=== PATIENT | female | born 1965 | race Asian ===

== ENCOUNTER 2016-08-01 15:25 | Emergency (ER) | payer BC ==
[2016-08-01 16:39] VITALS: BP 141/84
--- NOTE | 2016-08-01 16:52 | UC ---
Jacinto Keenan Claudia, scribed for Slim Lozano MD on 08/01/16 at 1624 . Abdominal Pain Female HPI - HPI Summary HPI Summary: 51 year old female presents to the [facility] with suprapubic abd discomfort and back pain. Pt notes it is a discomfort pain of 1-2/10 and is intermittent. Pt notes that she has been having this pain for 3 weeks and visited her OBGYN. OBGYN notes an uterine fibroid and recommended an US. Pt has an US appt for 08/23/16 and is unable to get a sooner appt. She notes that the discomfort has been getting worse and it as been concerning her so she called the OBGYN today whom recommended coming into [facility] for US today. - History of Current Complaint Chief Complaint: UCAbdominalPain Stated Complaint: ABD PAIN Time Seen by Provider: 08/01/16 16:10 Hx Obtained From: Patient Hx Last Menstrual Period: 07/22/16 Onset/Duration: Gradual Onset, Lasting Weeks - 3, Still Present Pain Scale Used: 0-10 Numeric - 1-2/10 Location: Suprapubic Radiates: Yes Radiates to: Back Character: Other - discomfort Aggravating Factor(s): Nothing Alleviating Factor(s): Nothing Allergies/Adverse Reactions: Allergies Allergy/AdvReac Type Severity Reaction Status Date / Time Amoxicillin Allergy Severe Rash Verified 08/01/16 16:04 Home Medications: Home Medications Brexpiprazole [Rexulti] 1 mg PO DAILY 08/01/16 [History Confirmed 08/01/16] PMH/Surg Hx/FS Hx/Imm Hx Previously Healthy: Yes Cardiovascular History Of: Reports: Hypertension - Surgical History Surgical History: Yes Surgery Procedure, Year, and Place: - Family History Known Family History: Positive: Hypertension, Other - CA lung, and liver - Social History Occupation: Employed Full-time Lives: With Family Alcohol Use: Occasionally Substance Use Type: None Smoking Status (MU): Never Smoked Tobacco Review of Systems Constitutional: Other - NO FEVER Skin: Negative Eyes: Negative ENT: Negative Respiratory: Negative Cardiovascular: Negative Gastrointestinal: Abdominal Pain Genitourinary: Negative Motor: Negative Neurovascular: Negative Musculoskeletal: Negative Neurological: Negative Psychological: Negative All Other Systems Reviewed And Are Negative: Yes Physical Exam Triage Information Reviewed: Yes Vital Signs: Initial Vital Signs Temp 98.8 F 08/01/16 15:58 Pulse 78 08/01/16 15:58 Resp 14 08/01/16 15:58 BP 167/93 08/01/16 15:58 Pulse Ox 98 08/01/16 15:58 - Additional Comments Vital signs: Reviewed Gen.: Patient is a well developed and nourished female in no acute distress. Patient is sitting comfortably on the stretcher. Head: Normacephalic and atraumatic Eyes: PERRLA, EOMI x2. Ears: Right ear canal and TM WNL and Left ear canal and TM WNL Nose and mouth:WNL Neck: Supple, Positive bilateral submandibular and anterior cervical lymphadenopathy. No JVD Lungs: CTA B/L CVS: S1 & S2 present. No murmurs appreciated. ABDOMEN: Soft NT w/ positive BS. EXT: FROM x 4 NEURO: A+O X 3. Abd Pain Female Course/Dx - Course Course Of Treatment: 51 year old female presents to the [facility] with suprapubic abd discomfort and back pain. Pt notes it is a discomfort pain of 1-2/10 and is intermittent. Pt notes that she has been having this pain for 3 weeks and visited her OBGYN. OBGYN notes an uterine fibroid and recommended an US. Pt has an US appt for 08/23/16 and is unable to get a sooner appt. She notes that the discomfort has been getting worse and it as been concerning her so she called the OBGYN today whom recommended coming into [facility] for US today. The pt continues to have abd discomfort, and I believe the pt needs pelvic US and recommended by OBGYN. Since we do not have an US at [facility] I discussed transfere to [facility] with provider whom accepts for transfer. Pt is hemodynamically stable for transfer. - Differential Dx/Diagnosis Differential Diagnosis: Constipation, Diverticulitis, Ovarian Cyst, Urinary Tract Infection, Other - Uterine fibroids Provider Diagnoses: pelvic pain Discharge - Discharge Plan Condition: Stable Disposition: AGAINST MEDICAL ADVICE Discharge Disposition Comment: Transfer to [facility] via Car Referrals: Chrissy Davis MD [Primary Care Provider] - The documentation as recorded by the Jacinto carpenter Claudia accurately reflects the service I personally performed and the decisions made by me, Slim Lozano MD.
== END 2016-08-01 16:35 | disposition left against medical advice (07) ==
LOC: UCEAST 15:25
DX: R10.2 Pelvic and perineal pain (principal); D25.9 Leiomyoma of uterus, unspecified; Z88.1 Allergy status to other antibiotic agents
CPT/HCPCS: 99212; G0463

== ENCOUNTER 2016-08-01 17:02 | Emergency (ER) | payer BC ==
--- NOTE | 2016-08-01 19:01 | ED ---
Abdominal Pain/Female - HPI Summary HPI Summary: 51F presents with pelvic pain for a day. She states that she has been following up with her obgyn for a potential fibroid but they were unable to get her an u/s till august so they sent here to for one. She states that she has been bleeding off and on for a month. She denies any vaginal discharge or history of STDs. She denies any n/v/d. She denies any dysuria. She states that the pain she gets is cramp like and is relieved with ibuprofen. She is not currently bleeding. - History of Current Complaint Chief Complaint: Albinodionne Stated Complaint: UCEAST-PELVIC,BACK PAIN Time Seen by Provider: 08/01/16 18:48 Hx Last Menstrual Period: 07/22/16 Pain Intensity: 1 Allergies/Adverse Reactions: Allergies Allergy/AdvReac Type Severity Reaction Status Date / Time Amoxicillin Allergy Severe Rash Verified 08/01/16 16:04 PMH/Surg Hx/FS Hx/Imm Hx Endocrine/Hematology History: Denies: Hx Anticoagulant Therapy Cardiovascular History: Reports: Hx Hypertension - Surgical History Surgery Procedure, Year, and Place: Infectious Disease History: No Infectious Disease History: Denies: Traveled Outside the [place] in Last 30 Days - Family History Known Family History: Positive: Hypertension, Other - CA lung, and liver - Social History Alcohol Use: Occasionally Substance Use Type: Reports: None Smoking Status (MU): Never Smoked Tobacco Review of Systems Negative: Fever Negative: Chest Pain Negative: Shortness Of Breath Positive: Abdominal Pain - pelvic pain. Negative: Vomiting, Diarrhea, Nausea All Other Systems Reviewed And Are Negative: Yes Physical Exam Triage Information Reviewed: Yes Vital Signs On Initial Exam: Initial Vitals Temp Pulse Resp BP Pulse Ox 97.8 F 80 16 136/76 100 08/01/16 17:04 08/01/16 17:04 08/01/16 17:04 08/01/16 17:04 08/01/16 17:04 Vital Signs Reviewed: Yes Appearance: Positive: Well-Appearing Skin: Positive: Warm, Dry Head/Face: Positive: Normal Head/Face Inspection Eyes: Positive: Normal, Conjunctiva Clear Respiratory/Lung Sounds: Positive: Clear to Auscultation, Breath Sounds Present Cardiovascular: Positive: Normal, RRR Abdomen Description: Positive: Nontender, Soft Bowel Sounds: Positive: Present Diagnostics - Vital Signs Vital Signs Temp Pulse Resp BP Pulse Ox 08/01/16 17:04 97.8 F 80 16 136/76 100 - Laboratory Result Diagrams: 08/01/16 19:55 08/01/16 19:55 Lab Statement: Any lab studies that have been ordered have been reviewed, and results considered in the medical decision making process. - Ultrasound No standard instances Ultrasound Interpretation: Positive (See Comments) - IMPRESSION: Fibroid in the uterus. No adnexal masses are noted. Ultrasound Interpretation Completed By: Radiologist Abdominal Pain Fem Course/Dx - Course Course Of Treatment: 51F presents for u/s for possible fibroid. has had cramp like pelvic pain and intermittent bleeding. denies any chance of STDs. on exam abdomen nontender. u/s shows fibriod, labs normal. told to follow up with obgyn for management of fibriod. patient understands and agrees with plan - Diagnoses Differential Diagnosis: Positive: Ovarian Cyst, Urinary Tract Infection, Other - fibroid Provider Diagnoses: Fibroid Discharge - Discharge Plan Condition: Good Disposition: HOME Patient Education Materials: Uterine Fibroids (ED) Referrals: Chrissy Davis MD [Primary Care Provider] - Additional Instructions: Follow up with obgyn Take Tylenol or ibuprofen for pain every 6 hours Return to ED if develop any new or worsening symptoms
[2016-08-01 19:05] LABS: Urine Bacteria Absent (Absent); Urine Bilirubin Negative (Negative); Urine Glucose Negative (Negative); Urine Nitrite Negative (Negative)
--- NOTE | 2016-08-01 19:56 | RAD ---
Indication: Pelvic pain. Real-time sonography of the pelvis was performed utilizing endovaginal technique. The uterus measures 7.7 x 5.2 x 6.2 cm. Posterior fibroid towards the left is noted measuring 9 x 12 x 8 mm. Endometrial echoes measure 5.4 mm. Right ovary measures 3.1 x 1.8 x 1.6 cm. Left ovary measures 3.5 x 1.7 x 1.8 cm. No adnexal masses are noted. IMPRESSION: Fibroid in the uterus. No adnexal masses are noted.
[2016-08-01 20:04] LABS: Hematocrit 39 % (35-47); Hemoglobin 13.2 g/dl (12.0-16.0); Mean Corpuscular HGB Conc 34 g/dl (31-36); Mean Corpuscular Hemoglobin 31 pg (27-31); Mean Corpuscular Volume 93 fL (80-97); Mean Platelet Volume 7 um3 (7.4-10.4); Red Blood Count 4.22 10^6/ul (4.0-5.4); Red Cell Distribution Width 13 % (10.5-15); White Blood Count 5.9 10^3/ul (3.5-10.8)
[2016-08-01 20:09] VITALS: BP 154/75
[2016-08-01 20:18] LABS: Albumin 4.4 g/dL (3.2-5.2); BUN/Creatinine Ratio 25.8 (8-20); Calcium 9.2 mg/dL (8.6-10.3); EGFR African American 121.4 (>60); EGFR Non-African American 94.4 (>60); Potassium 3.5 mmol/L (3.5-5.0); Total Bilirubin 0.7 mg/dL (0.2-1.0); Total Protein 7.4 g/dL (6.4-8.9)
== END 2016-08-01 20:08 | disposition home or self-care (01) ==
LOC: ED 17:02
DX: D25.9 Leiomyoma of uterus, unspecified (principal); R10.2 Pelvic and perineal pain
CPT/HCPCS: 36415; 76830; 80053; 81003; 81015; 85025; 87086; 99282

== ENCOUNTER 2017-05-28 09:51 | Emergency (ER) | payer BC ==
[2017-05-28 10:07] VITALS: BP 128/75
[2017-05-28] MEDS ORDERED: Ketorolac INJ* 60 MG/2 ML VIAL IM ONE (10:43)
--- NOTE | 2017-05-28 11:30 | UC ---
Ruy Keenan Angela, scribed for Simi Singh, DO on 05/28/17 at 1027 . Upper Extremity HPI - HPI Summary HPI Summary: This pt is a 51 y/o female presenting to [facility] c/o left sided neck pain s/p exercise 1 week ago. Pt reports she was in the gym doing a new exercise 1 week ago where she had to lay on her right side and lift weights. She denies feeling any injuries during this exercise. Pt notes that the next day after this exercise she couldn't turn her neck secondary to pain. She states that now her pain is on the left side of her ear at rest. With movement, she reports her pain is on the left side of her neck and left shoulder. She notes she can't move her head to the left or right secondary to pain. Pt describes her pain as sharp and burning. Pt has taken advil and has been massaging her neck with no improvement. She took Tylenol last this morning with no relief. She notes she has some nausea. Denies fever, chills, vomiting, abd pain, chest pain, SOB, dizziness. Pt took Norvasc, Lexapro, and Rexulti this morning. PMHx: vertigo, HTN, depression, . Pt has intermittent vertigo, and takes Meclizine for this, unchanged since neck pain. - History of Current Complaint Chief Complaint: UCUpperExtremity Stated Complaint: NECK AND SHOULDER STIFFNESS Time Seen by Provider: 05/28/17 10:11 Hx Obtained From: Patient Hx Last Menstrual Period: 05/15/2017 Onset/Duration: Lasting Days, Still Present Severity Initially: Moderate Severity Currently: Severe Pain Intensity: 7 - with movement Pain Scale Used: 0-10 Numeric Location Of Pain: Is Discrete @ - left side of neck Character: Sharp, Burning Aggravating Factor(s): Movement Alleviating Factor(s): Rest Associated Signs And Symptoms: Positive: Negative Related History: Other: - s/p new exercise at the gym - Allergies/Home Medications Allergies/Adverse Reactions: Allergies Allergy/AdvReac Type Severity Reaction Status Date / Time Amoxicillin Allergy Severe Rash Verified 05/28/17 10:08 Home Medications: Home Medications Multiple Vitamin [Multivitamins] 1 cap PO DAILY 05/28/17 [History Confirmed ] PMH/Surg Hx/FS Hx/Imm Hx Other Endocrine History: DENIES: diabetes Cardiovascular History: Hypertension Psychological History: Depression Other History Of: Negative For: Anticoagulant Therapy - Surgical History Surgical History: Yes Surgery Procedure, Year, and Place: - Family History Known Family History: Positive: Hypertension, Diabetes, Other - depression, CA lung, and liver - Social History Alcohol Use: Rare Substance Use Type: None Smoking Status (MU): Never Smoked Tobacco Review of Systems Constitutional: Negative Skin: Negative Eyes: Negative ENT: Negative Respiratory: Negative Cardiovascular: Negative Gastrointestinal: Nausea, Other - DENIES vomiting Genitourinary: Negative Motor: Decreased ROM - of neck secondary to pain Neurovascular: Negative Musculoskeletal: Other: - Left sided neck pain, left shoulder pain Neurological: Negative Psychological: Negative All Other Systems Reviewed And Are Negative: Yes Physical Exam Triage Information Reviewed: Yes Appearance: Well-Appearing, No Pain Distress, Well-Nourished Vital Signs: Initial Vital Signs Temp 98.3 F 05/28/17 10:02 Pulse 79 05/28/17 10:02 Resp 18 05/28/17 10:02 BP 128/75 05/28/17 10:02 Pulse Ox 98 05/28/17 10:02 Vital Signs Reviewed: Yes Eyes: Positive: Conjunctiva Clear. Negative: Discharge ENT: Positive: Hearing grossly normal, TMs normal. Negative: Muffled voice, Hoarse voice Neck exam: Normal Neck: Positive: Supple Respiratory: Positive: Lungs clear, Normal breath sounds, No respiratory distress, No accessory muscle use Cardiovascular: Positive: RRR, No Murmur Musculoskeletal: Positive: Other: - Kyphosis. Paraspinal spasm on the left. Trapezius spasm on the left. Levator scapula spasms on the left. No tenderness on the tendons of the rotator cuff. Strength and sensation intact bilaterally. No bony tenderness. ROM intact. Neurological: Positive: Alert, Muscle Tone Normal, Other: - Strength and sensation intact bilaterally Psychological Exam: Normal Psychological: Positive: Age Appropriate Behavior Skin Exam: Normal Skin: Positive: Other - warm, dry, normal color Upper Extremity Course/Dx - Course Course Of Treatment: In the [facility] course the patient was given a Toradol injection. Medications reviewed. Allergies reviewed. Elevated blood pressure noted likely due to pts condition. - Differential Dx/Diagnosis Provider Diagnoses: cervical strain Discharge - Discharge Plan Condition: Stable Disposition: HOME Patient Education Materials: Cervical Strain (ED) Referrals: Chrissy Davis MD [Primary Care Provider] - 6 Days (if not improving) Additional Instructions: MUSCLE RELAXERS: Muscle relaxing medications are usually prescribed for acute muscle spasm or injury to the neck and back. They are often combined with antiinflammatory pain medication for increased relief. You may stop the muscle relaxer when the pain and stiffness have improved. Start the medication again if spasms recur. Muscle relaxers may cause drowsiness, especially with the first dose. Do not operate machinery or drive while under the effects of the medication. Most muscle relaxers last up to 24 hours. Do not combine the medication with alcohol. ANTI-INFLAMMATORY MEDICATION: You have received a prescription for an antiinflammatory agent. This is an excellent, safe drug for pain control. In addition, it has potent antiinflammatory effects which are beneficial, especially in the treatment of injuries, arthritis, or tendonitis. It's best to take this medicine with food. Persons with ulcer disease or allergy to aspirin should notify their physician of this before taking this drug. Take the medication exactly as prescribed. Don't take additional doses unless instructed to do so by your doctor. If you develop wheezing, shortness of breath, hives, faintness, stomach pain, vomiting, or dark black stools, return for re-evaluation at once. WE HAVE GIVEN YOU A REFERAL TO PHYSICAL THERAPY YOU WOULD LIKELY BENEFIT FROM OSTEOPATHIC MANIPULATION. WE RECOMMEND THAT YOU FIND AN OSTEOPATHIC PHYSICIAN IN YOUR AREA WHO DOES LYMPHATIC, MYOFACIAL AND VISCERAL WORK Another option for body work : [facility] and [facility] [phone] The documentation as recorded by the Ruy carpenter Angela accurately reflects the service I personally performed and the decisions made by , Simi Singh DO.
== END 2017-05-28 11:24 | disposition home or self-care (01) ==
LOC: UCEAST 09:51
DX: S16.1XXA Strain of muscle, fascia and tendon at neck level, initial encounter (principal); X50.3XXA Overexertion from repetitive movements, initial encounter; Y93.B3 Activity, free weights; Z88.1 Allergy status to other antibiotic agents; Y92.39 Other specified sports and athletic area as the place of occurrence of the external cause; R42 Dizziness and giddiness; I10 Essential (primary) hypertension; F32.9 Major depressive disorder, single episode, unspecified
CPT/HCPCS: 99212; G0463; J1885

== ENCOUNTER 2018-01-22 16:50 | Inpatient (IN) | payer BC ==
--- NOTE | 2018-01-22 17:11 | ED ---
Psychiatric Complaint - HPI Summary HPI Summary: 52 y/o female presents to the ED c/o acute on chronic depression starting when the pt was 12, worsening in the last 2-3 months. Today the pt came home this afternoon and couldn't stop crying, called her therapist and was referred to the ED (therapist for over 15 years). Pt states she has occasional suicidal impulses like "franky the car". Associated sx: worsening tremor. Pt has "trouble controlling her emotions", per . Past medications reviewed on visit. Occasional EtOH use. Pt was hospitalized when the pt was 19. 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 - History Of Current Complaint Chief Complaint: EDMentalHealth Hx Obtained From: Patient, Family/Fretted Instrument Maker Hand - Hx Last Menstrual Period: 05/15/2017 Onset/Duration: Still Present Character: Depressed Alleviating Factor(s): Nothing Has Suicidal: Reports: Thoughts - "impulses" - Allergies/Home Medications Allergies/Adverse Reactions: Allergies Allergy/AdvReac Type Severity Reaction Status Date / Time amoxicillin Allergy Rash Verified 01/22/18 16:57 Home Medications: Home Medications Brexpiprazole (NF) [Rexulti (NF)] 2 mg PO DAILY 01/22/18 [History Confirmed 03/01] Calcium Carb/Vitamin D3/Vit K1 [Viactiv 500-500-40 mg-Unt-Mcg] 2 chw PO DAILY [History Confirmed 01/22/18] Escitalopram (NF) [Lexapro 20 mg (NF)] 30 mg PO DAILY 01/22/18 [History Confirmed 01/22/18] Ibuprofen TAB* [Motrin TAB* 600 MG] 600 mg PO Q6H PRN 01/22/18 [History Confirmed 01/22/18] Multivitamins/Minerals TAB* [Theragran/minerals TAB*] 1 tab PO DAILY 01/22/18 [ History Confirmed 01/22/18] amLODIPine TAB* [Norvasc 5 mg TAB*] 5 mg PO DAILY 01/22/18 [History Confirmed ] PMH/Surg Hx/FS Hx/Imm Hx Previously Healthy: No Endocrine/Hematology History: Denies: Hx Anticoagulant Therapy Cardiovascular History: Reports: Hx Hypertension - Surgical History Surgery Procedure, Year, and Place: Infectious Disease History: No Infectious Disease History: Denies: Traveled Outside the [place] in Last 30 Days - Family History Known Family History: Positive: Hypertension, Diabetes, Other - depression, CA lung, and liver - Social History Alcohol Use: Rare Hx Substance Use: No Substance Use Type: Reports: None Hx Tobacco Use: No Smoking Status (MU): Never Smoked Tobacco Review of Systems Negative: Fever, Chills Negative: Drainage Negative: Sore Throat Negative: Chest Pain Negative: Shortness Of Breath, Cough Negative: Abdominal Pain, Vomiting, Nausea Negative: dysuria, hematuria Negative: Myalgia, Edema Negative: Rash Neurological: Other - no dizziness Positive: Depressed, Other - "occasional suicidal impulses like franky her car " All Other Systems Reviewed And Are Negative: Yes Physical Exam - Summary Physical Exam Summary: Constitutional: Well-developed, Well-nourished, Alert. (-) Distressed Skin: Warm, Dry HENT: Normocephalic; Atraumatic Eyes: Conjunctiva normal Neck: Musculoskeletal ROM normal neck. (-) JVD, (-) Stridor, (-) Tracheal deviation Cardio: Rhythm regular, rate normal, Heart sounds normal; Intact distal pulses; The pedal pulses are 2+ and symmetric. Radial pulses are 2+ and symmetric. (-) Murmur Pulmonary/Chest wall: Effort normal. (-) Respiratory distress, (-) Wheezes, (-) Rales Abd: Soft, (-) epigastric tenderness, (-) Distension, (-) Guarding, (-) Rebound Musculoskeletal: (-) Edema Lymph: (-) Cervical adenopathy Neuro: Alert, Oriented x3. Pt has a resting tremor. Psych: Mood and affect Normal Triage Information Reviewed: Yes Vital Signs On Initial Exam: Initial Vitals Temp Pulse Resp BP Pulse Ox 98.8 F 89 16 165/88 99 01/22/18 16:53 01/22/18 16:53 01/22/18 16:53 01/22/18 16:53 01/22/18 16:53 Vital Signs Reviewed: Yes Diagnostics - Vital Signs Vital Signs Temp Pulse Resp BP Pulse Ox 01/22/18 16:53 98.8 F 89 16 165/88 99 - Laboratory Lab Statement: Any lab studies that have been ordered have been reviewed, and results considered in the medical decision making process. Course/Dx - Course Assessment/Plan: Pt clear for [facility]HE. Pt will be signed out to Dr. Mcclelland pending dispo and MHE. - Differential Dx/Clinical Impression Provider Diagnosis: Depression Discharge - Sign-Out/Discharge Documenting (check all that apply): Sign-Out Patient Signing out patient TO: Debra Mcclelland Receiving patient FROM: Jax De La Garza - Discharge Plan Referrals: Chrissy Davis MD [Primary Care Provider] - - Attestation Statements Document Initiated by Scribe: Yes Documenting Scribe: Cedrick Grady Provider For Whom Scribe is Documenting (Include Credential): Jax De La Garza MD Scribe Attestation: Cedrick Keenan, scribed for Jax De La Garza MD on 01/23/18 at 0019.
--- OUTSIDE RECORDS SUMMARY | 2018-01-22 17:56 | XMS REPORT ---
:1965 External Reference #:[id number] Author Organization [facility] Address [address] [place] [address] Phone [phone] Care Team Providers Name Role Phone Chrissy Davis M.D. 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 Primary Care Physician Unavailable Payers Type Date Identification Numbers Payment Provider Subscriber Commercial Effective: Policy Number: [id number] [place] [employer] Issa Charlene 2002 Group Number: [id number] [address] PayID: [id number] [place] [address] Problems Date Description Provider Status Onset: 03/18/2011 Essential hypertension Charlie José M.D. Active Onset: 07/28/2011 Peripheral vertigo Charlie José M.D. Active Onset: 07/28/2011 Impacted cerumen Charlie José M.D. Active Onset: 07/16/2012 Low back pain Charlie José M.D. Active Onset: 02/26/2014 Essential tremor Chrissy Davis M.D. Active Onset: 02/26/2014 Moderate recurrent major depression Chrissy Davis M.D. Active Onset: 02/26/2014 Excessive and frequent menstruation Chrissy Davis M.D. 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 Use Nonsmoker ETOH Use Rare Smoking Patient has never smoked Exercise Type/Frequency Exercises rarely Current Allergies, Adverse Reactions, Alerts Date Description Reaction Status Severity Comments 06/07/2002 Amoxicillin active Medications Medication Date Status Form Strength Qnty SIG Indications Ordering Provider Amlodipine 01/19 Active Tablets 5mg 30tab 1 by I10 Angeli Padron Besylate s mouth Josué, every day 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 Multi Vitamin 12/31 Active Tablets once Tana daily Juan Pablo, [employer] Meclizine HCL 12/29 Active Tablets 25mg 30tab take 1/2- H81.391 s 1 tablet Juan Pablo, three [employer] times a day if needed for dizziness Fish Oil 02/26 Active Capsules 1000mg 1 by Family /2013 mouth Medicine every day [facility] Lexapro Active 20mg 1 05/16 PO 296.32 Family / qd [facility] Rexulti Active Tablets 2mg qd Unknown / Cytomel Active Tablets Unknown /0000 Propranolol HCL 01/05 Hx Tablets 20mg 30tab take one I10 Angeli C. 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 /Trimethoprim 2017 Jerome De La Fuente MD 01/05 Physical Therapy 04/18 Hx evaluate H81.391 and treat Juan Pablo, - vertigo [employer] 06/28 d\\ crystal formation in right inner ear Norvasc 12/31 Hx Tablets 5mg 90tab Take 1 s Tablet By Juan Pablo, - Mouth [employer] 01/05 Daily Norvasc 06/04 Hx Tablets 5mg 30tab take one s tablet by Ryan, - mouth one M.DAden 12/31 time daily Ibuprofen 07/16 Hx Tablets 600mg 50tab 1 po tid 724.2 Guerra A. /2012 s tiff José M.D. - 10/12 Cyclobenzaprine 07/16 Hx Tablets 10mg 20tab take 1 724.2 Guerra A. HCL /2012 s tablet by Danielle José - mouth 10/12 evening if needed for muscle spasm Fluticasone 04/02 Hx Suspension 50mcg/Act 16uni spray 2 388.9 Guerra A. Propionate ts sprays Danielle José - into each 10/12 nostril once daily Amlodipine 04/02 Hx Tablets 5mg 30tab take one 401.9 Chrissy Besylate s tablet by Ryan, - mouth one Danielle 06/04 daily Amlodipine 09/08 Hx Tablets 10mg 30tab Take One Guerra A. Besylate s Tablet By Danielle José - Mouth One 04/02 Daily Medrol 08/22 Hx Tablets 4mg 1tabs dose-pack 386.10 Guerra A. as Danielle José - instructe 04/02 Fluticasone 08/22 Hx Suspension 50mcg/Act 1unit spray 2 386.10 Guerra A. Propionate s sprays Danielle José - into each 04/02 nostril once daily Transderm-Scop 08/08 Hx Patches 1.5mg 3unit apply one Guerra . 72HR s patch Danielle José - every 08/15 days prn Meclizine HCL 07/27 Hx Tablets 12.5mg 30tab one to 386.10 Guerra A. s two tab Danielle José - po every 08/04 12 Amlodipine 05/16 Hx Tablets 2.5mg 90tab Take One Guerra A. Besylate s Tablet By Danielle José - Mouth One 09/08 Daily Zithromax 05/07 Hx Tablets 250mg 6Tabs 2 po qd 466.0 Tana Juan Pablo armstrong, - then 1 po [employer]OL 10/12 qd 4 Norvasc 08/08 Hx Tabs 2.5mg 90tab Take One Guerra A. s Tablet By Danielle José - Mouth One 05/16 Daily Abilify 05/14 Hx Tablets 5mg 1/2 po qd [facility] [place] Fish Oil 06/11 Hx Capsules 3 po qd Guerra A. Danielle José - 08/22 Azithromycin 05/21 Hx Tablets 250mg 6tabs 2 po 466.0 Guerra A. today and Danielle José - 1 po x 4 Tessalon Perles 05/21 Hx Capsules 100mg 30cap one to 466.0 Guerra A. s two tabs Danielle José - po tid 06/11 prn cough Norvasc 03/24 Hx Tablets 2.5mg 30tab 1 PO qd Guerra A. s Danielle José - 01/01 Metoprolol 02/14 Hx Tablets ER 25mg 30tab one tab Guerra A. Succinate ER /2007 24HR s po daily Danielle José - 03/24 Metoprolol 01/24 Hx Tablets ER 50mg 30tab 1 po qd Guerra A. Succinate ER 24HR s Danielle José - 02/14 Zithromax 06/25 Hx Tablets 250mg 9tabs 2 po qd 465.9 Guerra A. for three Danielle José - days , then 1 po /2007 qd 3 Motrin 06/11 Hx Tablets 600mg 60tab 1 PO tid 716.99 Guerra A. s prn Danielle José - 06/21 Keflex 05/22 Hx Capsules 500mg 14cap 1 po bid Thai J. /2007 Jerome Nieves M.D. 06/11 Doxycycline 07/30 Hx 100mg 20uni 1 po bid Guerra A. ts Danielle José - 05/22 Keflex 06/07 Hx 500 20uni 1 bid X Kirstin ts 10 Days Jerome Nassar-Yari 06/17 Wellbutrin XL Hx Tablets 150mg 1 po qd Unknown - Abilify Hx Tablets 2mg 30tab 1 po qd Unknown /0000 s - 06/28 Cytomel Hx Tablets 50mcg 2 po qd Unknown - 02/25 Vitamin D Hx Capsules 1000Unit 90cap 1 po qd Unknown /0000 s - 08/22 Claritin D 0000 Hx otc Unknown /0000 - 08/22 Immunizations CPT Code Status Date Vaccine Lot # [id number] Given 02/20/2015 Influenza Vac, Quadrivalent, Slit Virus, Im [id number] 92433 Given 02/26/2014 DO Not Use Split Influenza Virus Vaccine [id number] 68027 Given 02/13/2013 DO Not Use Split Influenza Virus Vaccine [id number] 65663 Given 04/02/2012 DO Not Use Split Influenza Virus Vaccine [id number] 02349 Given 03/05/2011 DO Not Use Split Influenza Virus Vaccine [id number] 93739 Given 02/06/2010 DO Not Use Split Influenza Virus Vaccine [id number] 86821 Given 05/14/2009 H1N1 Nasal Virus Vaccine [id number] 44258 Given 05/14/2009 H1N1 Immunization Intramuscular/Intranasal W Counseling 70384 Given 04/18/2009 DO Not Use Split Influenza Virus Vaccine [id number] 68083 Given 03/05/2008 Tdap Tetanus, W Pertussis [id number] 75233 Given 03/05/2008 DO Not Use Split Influenza Virus Vaccine [id number] Vital Signs Date Vital Result Comment 01/19/2018 BP Systolic 124 mmHg BP Diastolic 80 mmHg Heart Rate 78 /min Body Temperature 97.7 F Height 63.5 inches 5'3.50" 01/05/2018 BP Systolic 132 mmHg BP Diastolic 82 mmHg Heart Rate 84 /min Body Temperature 97.5 F Height 63.5 inches 5'3.50" Weight 134.00 lb BMI (Body Mass Index) 23.4 kg/m2 10/23/2017 BP Systolic 126 mmHg BP Diastolic 80 mmHg Heart Rate 68 /min Body Temperature 97.3 F Respiratory Rate 16 /min Height 63.5 inches 5'3.50" Weight 134.00 lb BMI (Body Mass Index) 23.4 kg/m2 08/15/2017 BP Systolic 140 mmHg BP Diastolic 80 mmHg Heart Rate 90 /min Body Temperature 97.7 F Height 63.5 inches 5'3.50" Weight 133.00 lb BMI (Body Mass Index) 23.2 kg/m2 06/28/2017 BP Systolic 118 mmHg BP Diastolic 78 mmHg Heart Rate 74 /min Body Temperature 97.2 F Respiratory Rate 16 /min Height 63.5 inches 5'3.50" Weight 133.00 lb BMI (Body Mass Index) 23.2 kg/m2 04/18/2016 BP Systolic 122 mmHg BP Diastolic 68 mmHg Heart Rate 72 /min Body Temperature 97.4 F Respiratory Rate 16 /min Height 63.5 inches 5'3.50" Weight 131.00 lb BMI (Body Mass Index) 22.8 kg/m2 01/01/2016 BP Systolic 118 mmHg BP Diastolic 70 mmHg Heart Rate 68 /min Body Temperature 97.3 F Respiratory Rate 16 /min Height 63.5 inches 5'3.50" Weight 127.00 lb BMI (Body Mass Index) 22.1 kg/m2 12/29/2014 BP Systolic 108 mmHg BP Diastolic 64 mmHg Heart Rate 72 /min Body Temperature 97.5 F Respiratory Rate 16 /min Height 63.5 inches 5'3.50" Weight 137.00 lb BMI (Body Mass Index) 23.9 kg/m2 02/26/2014 BP Systolic 114 mmHg BP Diastolic 68 mmHg Heart Rate 72 /min Body Temperature 96.1 F Height 63.5 inches 5'3.50" Weight 133.50 lb BMI (Body Mass Index) 23.3 kg/m2 10/12/2012 BP Systolic 118 mmHg BP Diastolic 82 mmHg Heart Rate 78 /min Body Temperature 97.0 F Respiratory Rate 15 /min Height 63.5 inches 5'3.50" Weight 131.00 lb BMI (Body Mass Index) 22.8 kg/m2 07/16/2012 BP Systolic 120 mmHg BP Diastolic 82 mmHg Heart Rate 90 /min Body Temperature 97.2 F Height 63.5 inches 5'3.50" Weight 133.38 lb BMI (Body Mass Index) 23.3 kg/m2 04/23/2012 BP Systolic 110 mmHg BP Diastolic 70 mmHg Heart Rate 68 /min Body Temperature 97.3 F Height 63.5 inches 5'3.50" Weight 134.00 lb BMI (Body Mass Index) 23.4 kg/m2 04/02/2012 BP Systolic 90 mmHg BP Diastolic 60 mmHg Heart Rate 80 /min Body Temperature 97.2 F Height 63.5 inches 5'3.50" Weight 132.00 lb BMI (Body Mass Index) 23.0 kg/m2 08/23/2011 BP Systolic 120 mmHg BP Diastolic 82 mmHg Heart Rate 78 /min Body Temperature 96.7 F Height 63.5 inches 5'3.50" Weight 126.00 lb BMI (Body Mass Index) 22.0 kg/m2 08/16/2011 BP Systolic 150 mmHg BP Diastolic 100 mmHg Heart Rate 94 /min Body Temperature 97.9 F Height 63.5 inches 5'3.50" Weight 126.00 lb BMI (Body Mass Index) 22.0 kg/m2 08/05/2011 BP Systolic 120 mmHg lay BP Diastolic 80 mmHg lay BP Systolic Recheck 120 mmHg sit BP Diastolic Recheck 84 mmHg sit Heart Rate 72 /min stand 100/70 Body Temperature 98.3 F Respiratory Rate 18 /min Height 63.5 inches 5'3.50" Weight 127.00 lb BMI (Body Mass Index) 22.1 kg/m2 07/28/2011 BP Systolic 132 mmHg BP Diastolic 92 mmHg Heart Rate 84 /min Body Temperature 98.1 F Height 63.5 inches 5'3.50" Weight 127.00 lb BMI (Body Mass Index) 22.1 kg/m2 10/12/2010 BP Systolic 128 mmHg BP Diastolic 80 mmHg Heart Rate 80 /min Body Temperature 97.5 F Height 63.5 inches 5'3.50" Weight 126.00 lb BMI (Body Mass Index) 22.0 kg/m2 05/07/2010 BP Systolic 124 mmHg BP Diastolic 80 mmHg Heart Rate 78 /min Body Temperature 97.7 F Respiratory Rate 16 /min O2 % BldC Oximetry 99 % Height 63.5 inches 5'3.50" Weight 128.00 lb BMI (Body Mass Index) 22.3 kg/m2 01/01/2010 BP Systolic 130 mmHg BP Diastolic 80 mmHg Heart Rate 76 /min Body Temperature 98.7 F Respiratory Rate 20 /min Height 63.5 inches 5'3.50" Weight 126.00 lb BMI (Body Mass Index) 22.0 kg/m2 05/14/2009 BP Systolic 108 mmHg BP Diastolic 78 mmHg Heart Rate 80 /min Body Temperature 97.0 F Height 63.5 inches 5'3.50" Weight 133.00 lb BMI (Body Mass Index) 23.2 kg/m2 06/11/2008 BP Systolic 138 mmHg BP Diastolic 84 mmHg Heart Rate 84 /min Body Temperature 97.7 F Weight 128.00 lb 05/21/2008 BP Systolic 150 mmHg BP Diastolic 90 mmHg Heart Rate 88 /min Body Temperature 97.5 F Height 63.5 inches 5'3.50" Weight 126.00 lb BMI (Body Mass Index) 22.0 kg/m2 03/24/2008 BP Systolic 112 mmHg BP Diastolic 80 mmHg Heart Rate 72 /min Body Temperature 97.5 F Height 63.5 inches 5'3.50" Weight 126.00 lb BMI (Body Mass Index) 22.0 kg/m2 03/05/2008 BP Systolic 124 mmHg BP Diastolic 80 mmHg Heart Rate 84 /min Body Temperature 97.5 F Height 63.5 inches 5'3.50" Weight 127.00 lb BMI (Body Mass Index) 22.1 kg/m2 02/20/2008 BP Systolic 126 mmHg BP Diastolic 70 mmHg Body Temperature 98.6 F Height 63.5 inches 5'3.50" Weight 126.00 lb BMI (Body Mass Index) 22.0 kg/m2 01/30/2008 BP Systolic 120 mmHg BP Diastolic 74 mmHg Heart Rate 68 /min Body Temperature 98.8 F Height 63.5 inches 5'3.50" Weight 126.00 lb BMI (Body Mass Index) 22.0 kg/m2 07/13/2007 BP Systolic 126 mmHg BP Diastolic 84 mmHg Heart Rate 78 /min Body Temperature 98.5 F Height 63.5 inches 5'3.50" Weight 124.00 lb BMI (Body Mass Index) 21.6 kg/m2 06/25/2007 BP Systolic 128 mmHg BP Diastolic 70 mmHg Heart Rate 96 /min Body Temperature 99.7 F Respiratory Rate 12 /min Height 63.5 inches 5'3.50" Weight 123.00 lb BMI (Body Mass Index) 21.4 kg/m2 06/18/2007 BP Systolic 148 mmHg BP Diastolic 98 mmHg Heart Rate 64 /min Body Temperature 97.7 F Respiratory Rate 12 /min Height 63.5 inches 5'3.50" Weight 124.00 lb BMI (Body Mass Index) 21.6 kg/m2 06/11/2007 BP Systolic 180 mmHg BP Diastolic 110 mmHg Heart Rate 100 /min Body Temperature 98.3 F Respiratory Rate 20 /min Height 63.5 inches 5'3.50" Weight 121.00 lb BMI (Body Mass Index) 21.1 kg/m2 05/22/2007 BP Systolic 150 mmHg BP Diastolic 88 mmHg Heart Rate 76 /min Body Temperature 98.2 F Height 63.5 inches 5'3.50" Weight 124.00 lb BMI (Body Mass Index) 21.6 kg/m2 03/22/2007 BP Systolic 120 mmHg BP Diastolic 80 mmHg Body Temperature 98.1 F Height 63.5 inches 5'3.50" Weight 124.00 lb BMI (Body Mass Index) 21.6 kg/m2 08/17/2006 BP Systolic 134 mmHg BP Diastolic 94 mmHg Heart Rate 84 /min Body Temperature 98.2 F Height 63.5 inches 5'3.50" Weight 128.00 lb BMI (Body Mass Index) 22.3 kg/m2 06/06/2006 BP Systolic 142 mmHg BP Diastolic 88 mmHg Heart Rate 80 /min Body Temperature 98.6 F Weight 136.00 lb 07/30/2002 BP Systolic 110 mmHg BP Diastolic 60 mmHg Body Temperature 98.4 F Weight 129.00 lb 06/07/2002 BP Systolic 120 mmHg BP Diastolic 72 mmHg Body Temperature 97.3 F Weight 129.00 lb Results Test Date Test Result H/L Range Note Ua - Micro (Fma) 10/23/2017 Appearance clear Color yellow Glucose, Urine (Fma/CMC/CTX) neg Bilirubin neg Ketones neg SP Grav 1.015 Blood neg PH 6.5 Protein neg Urobil 0.2 Nitrite neg Leukocytes (Fma/CMC/Centrex) trace Hyaline - /Lpf Granular - /Lpf WBC (a,Centrex) 1-2 RBC - Mucus - /Lpf Epith occass /Lpf Bacteria trace /Hpf Amorphous - /Lpf Crystals, Fluid (Fma/CMC/CTX) - Z#Comments - Urine Culture And 10/23/2017 Urine Culture SEE RESULT 1 Sensitivities BELOW Laboratory test finding 08/01/2016 Urine Culture And SEE RESULT 2 Sensitivities BELOW CBC Auto Diff 08/01/2016 White Blood Count 5.9 10^3/uL 3.5-10.8 Red Blood Count 4.22 10^6/uL 4.0-5.4 Hemoglobin 13.2 g/dL 12.0-16.0 Hematocrit 39 % 35-47 Mean Corpuscular Volume 93 fL 80-97 Mean Corpuscular Hemoglobin 31 pg 27-31 Mean Corpuscular HGB Conc 34 g/dL 31-36 Red Cell Distribution Width 13 % 10.5-15 Platelet Count 203 10^3/uL 150-450 Mean Platelet Volume 7 um3 Low 7.4-10.4 Abs Neutrophils 3.6 10^3/uL 1.5-7.7 Abs Lymphocytes 1.6 10^3/uL 1.0-4.8 Abs Monocytes 0.3 10^3/uL 0-0.8 Abs Eosinophils 0.2 10^3/uL 0-0.6 Abs Basophils 0.1 10^3/uL 0-0.2 Abs Nucleated RBC 0 10^3/uL Granulocyte % 62.2 % 38-83 Lymphocyte % 26.8 % 25-47 Monocyte % 5.7 % 1-9 Eosinophil % 4.1 % 0-6 Basophil % 1.2 % 0-2 Nucleated Red Blood Cells % 0 Urinalysis Profile 08/01/2016 Urine Color Yellow Urine Appearance Clear Urine Specific [place] 1.014 1.010-1.030 Urine pH 6.0 5-9 Urine Urobilinogen Negative Negative Urine Ketones Negative Negative Urine Protein Negative Negative Urine Leukocytes Trace Negative Urine Blood Negative Negative Urine Nitrite Negative Negative Urine Bilirubin Negative Negative Urine Glucose Negative Negative Urine White Blood Cell Trace(0-5/hpf) Absent Urine Red Blood Cell Absent Absent Urine Bacteria Absent Absent Urine Squamous Epithelial Cell Present Absent Comp Metabolic Panel 08/01/2016 Sodium 139 mmol/L 133-145 Potassium 3.5 mmol/L 3.5-5.0 Chloride 103 mmol/L 101-111 Co2 Carbon Dioxide 27 mmol/L 22-32 Anion Gap 9 mmol/L 2-11 Glucose 82 mg/dL 70-100 Blood Urea Nitrogen 17 mg/dL 6-24 Creatinine 0.66 mg/dL 0.51-0.95 BUN/Creatinine Ratio 25.8 High 8-20 Calcium 9.2 mg/dL 8.6-10.3 Total Protein 7.4 g/dL 6.4-8.9 Albumin 4.4 g/dL 3.2-5.2 Globulin 3.0 g/dL 2-4 Albumin/Globulin Ratio 1.5 1-3 Total Bilirubin 0.70 mg/dL 0.2-1.0 Alkaline Phosphatase 37 U/L 34-104 Alt 12 U/L 7-52 Ast 18 U/L 13-39 Egfr Non- 94.4 >60 Egfr 121.4 >60 3 Laboratory test finding 07/26/2016 Cytology SEE RESULT BELOW 4 Egfr (Calculated) 03/03/2014 Estimated GFR (CALCULATED) 5 Egfr >60 5, 6 Egfr, -[place] >60 5, 7 Laboratory test finding 03/03/2014 TSH (Thyrotropin) 1.780 uIU/ml 0.350- 5.500 5 CBC 03/03/2014 WBC 5.2 x10E3/uL 4.3-10.9 5 RBC 4.01 x10E6/uL 3.80-5.30 5 Hemoglobin 12.7 g/dL 11.8-15.8 5 Hematocrit 38.4 % 35.0-47.0 5 MCV 95.8 fl 82.0-98.0 5 MCH 31.7 pg 27.5-33.5 5 MCHC 33.1 g/dL 32.0-36.0 5 RDW 13.3 % 11.5-14.5 5 Platelet Count 249 x10E3/uL 130-400 5 MPV 9.6 fl 8.6-12.6 5 Segmented Neutrophils 68.9 % 44.0-74.0 5 Lymphocytes 22.4 % 15.0-45.0 5 Monocytes 6.9 % 2.0-13.0 5 Eosinophils 1.0 % 0.0-6.0 5 Basophils 0.8 % 0.0-2.0 5 Neutrophil Absolute 3.6 x10E3/uL 1.4-7.0 5 Lymphocytes Absolute 1.2 x10E3/uL 1.0-3.4 5 Monocyte Absolute 0.4 x10E3/uL 0.2-1.0 5 Eosinophil Absolute 0.1 x10E3/uL 0.0-0.5 5 Basophil Absolute 0.0 x10E3/uL 0.0-0.2 5 Lipid Panel 03/03/2014 Cholesterol, Total 167 mg/dL <200 5 Triglycerides 91 mg/dL <150 5 HDL Cholesterol 57 mg/dL 40-60 5 Chol/HDL Cholesterol 2.9 5, 8 LDL Cholesterol, Calc. 92 mg/dL 5, 9 LDL/HDL Cholesterol 1.6 5, 10 Comprehensive Metabolic 03/03/2014 Glucose 85 mg/dL 70-100 5 BUN 11 mg/dL 4-18 5 Creatinine, Serum 0.72 mg/dL 0.50-1.10 5 Sodium 142 mmol/L 136-146 5 Potassium 4.5 mmol/L 3.5-5.3 5 Chloride 107 mmol/L 98-110 5 Carbon Dioxide 30 mmol/L 20-32 5 Albumin 4.3 g/dL 3.5-4.7 5 Protein, Total 7.2 g/dL 6.4-8.3 5 Calcium 8.9 mg/dL 8.4-10.4 5 Alkaline Phosphatase 50 U/L 10-118 5 Sgot (Ast) 21 U/L 3-40 5 SGPT (Alt) 16 U/L 7-50 5 Bilirubin, Total 1.00 mg/dL 0.30-1.20 5 Throat-Beta Strept 04/10/2013 Throat Beta Strep Culture (SEE NOTE) 11 Ua - Non Micro (Fma) 10/12/2012 Appearance CLEAR Color YELLOW Glucose NEG Bilirubin ICTO:NEG Ketones 15 mg/dL SP Grav 1.020 Blood NEG PH 7.0 Protein NEG Urobil 1.0 Nitrite NEG Leukocytes (Fma/CMC/Centrex) NEG Laboratory test finding 10/12/2012 Thin Prep W/HPV(Lsil/MATT/Asc) SEE NOTE 12 Laboratory test finding 07/16/2012 Urine Culture No growth. Ua - Micro (Fma) 07/16/2012 Appearance clear Color yellow Glucose neg Bilirubin neg Ketones neg SP Grav 1.015 Blood neg PH 8.0 Protein neg Urobil 0.2 Nitrite neg Leukocytes (Fma/CMC/Centrex) small Hyaline - /Lpf Granular - /Lpf WBC (Fma,Centrex) 3-5 RBC 0-2 Mucus - /Lpf Epith occass /Lpf Bacteria trace /Hpf Amorphous - /Lpf Crystals, Fluid (Fma/CMC/CTX) - Z#Comments - Hepatic (Liver) Panel 11/30/2010 Albumin 4.2 g/dL 3.5-4.7 13 Protein, Total 7.1 g/dL 6.4-8.3 13 Alkaline Phosphatase 69 U/L 10-118 13 Sgot (Ast) 41 U/L High 3-40 13 SGPT (Alt) 47 U/L 7-50 13 Bilirubin, Total 0.90 mg/dL 0.30-1.20 13 Bilirubin, Direct 0.27 mg/dL 0.00-0.40 13 Bilirubin, Indirect 0.63 mg/dL 0.10-1.10 13 Laboratory test 11/30/2010 TSH (Thyrotropin) <0.019 uIU/ml Low 0.350- 5.500 13, 14 finding T-4 Free 0.4 ng/dL Low 0.8-1.8 13 Triiodothyronine,Free,Ser 13.1 pg/mL High 2.0-4.4 13 T-4 Total 3.7 g/dL Low 4.5-10.9 13 CBC 10/12/2010 WBC 4.7 x10E3/uL 4.3-10.9 15 RBC 4.11 x10E6/uL 3.80-5.30 15 Hemoglobin 11.9 g/dL 11.8-15.8 15 Hematocrit 37.5 % 35.0-47.0 15 MCV 91.2 fl 82.0-98.0 15 MCH 29.0 pg 27.5-33.5 15 MCHC 31.7 g/dL Low 32.0-36.0 15 RDW 13.3 % 11.5-14.5 15 Platelet Count 222 x10E3/uL 130-400 15 MPV 9.1 fl 6.5-10.5 15 Segmented Neutrophils 67.5 % 44.0-74.0 15 Lymphocytes 26.1 % 15.0-45.0 15 Monocytes 4.7 % 2.0-13.0 15 Eosinophils 1.3 % 0.0-6.0 15 Basophils 0.4 % 0.0-2.0 15 Neutrophil Absolute 3.2 x10E3/uL 1.4-7.0 15 Lymphocytes Absolute 1.2 x10E3/uL 1.0-3.4 15 Monocyte Absolute 0.2 x10E3/uL 0.2-1.0 15 Eosinophil Absolute 0.1 x10E3/uL 0.0-0.5 15 Basophil Absolute 0.0 x10E3/uL 0.0-0.2 15 Egfr (Calculated) 10/12/2010 Estimated GFR (CALCULATED) 15 Egfr >60 15, 16 Egfr, -[place] >60 15, 17 Comprehensive Metabolic 10/12/2010 Glucose 108 mg/dL High 70-100 15 BUN 14 mg/dL 4-18 15 Creatinine, Serum 0.55 mg/dL 0.50-1.10 15 Sodium 141 mmol/L 136-146 15 Potassium 4.4 mmol/L 3.5-5.3 15 Chloride 106 mmol/L 98-110 15 Carbon Dioxide 29 mmol/L 20-32 15 Albumin 4.1 g/dL 3.5-4.7 15 Protein, Total 6.9 g/dL 6.4-8.3 15 Calcium 9.0 mg/dL 8.4-10.4 15 Alkaline Phosphatase 68 U/L 10-118 15 Sgot (Ast) 49 U/L High 3-40 15 SGPT (Alt) 64 U/L High 7-50 15 Bilirubin, Total 0.70 mg/dL 0.30-1.20 15 Laboratory test finding 10/12/2010 C-Reactive Protein 1.1 mg/L 0.0-5.0 15, 18 Liver Function Panel 03/12/2010 Bilirubin Direct 0.2 mg/dL 0.1-0.5 Indirect Bilirubin 0.5 mg/dL 0.3-1.0 19 Laboratory test finding 03/12/2010 Magnesium 2.1 mg/dL 1.7-2.6 Amylase 90 U/L 30-125 Lipase 28 U/L 22-51 CPK (Creatine Kinase) 81 U/L 0-170 Laboratory test finding 03/12/2010 Troponin-I (TnI) 0.01 NG/ML 20 Urinalysis W/Microscopic 03/12/2010 Ua Color YELLOW Yellow Appearance-Urine CLEAR Clear Specific [place]-Ur 1.006 Low 1.010-1.030 Esterase-Urine TRACE Negative Nitrite NEGATIVE Negative [id number] NEGATIVE Negative Protein-Urine NEGATIVE Negative PH-Urine 7.0 5-9 Blood-Urine NEGATIVE Negative Ketones-Urine NEGATIVE Negative Bilirubin-Ur NEGATIVE Negative Glucose-Urine NEGATIVE Negative WBC-Urine 1-3 0-5 RBC-Urine 1-3 0-2 Epith Cells-Ur RARE None Bacteria-Urine TRACE None CBC With Electronic Diff 03/12/2010 White Blood Count 4.1 CUMM Low 4.8- 10.8 Red Cell Count 3.87 CUMM Low 4.2-5.4 Hemoglobin 12.5 g/dL 12.0-16.0 Hematocrit 36 % 35-47 Mean Corpuscular Volume 93 um3 79-97 Mean Corpuscular Hemoglob 32 pg High 27-31 Mean Corpuscular HGB Cone 35 g/dL 32-36 Redcell Distribution WDTH 12 % 10.5-15 Platelet Count 253 CUMM 150-450 Mean Platelet Volume 5.8 um3 Low 7.4-10.4 Gran % 64.6 % 38-83 Lymph % 25.4 % 25-47 Mononuclear % 8.5 % 1-9 Eosinophil % 1.1 % 0-6 Basophil % 0.4 % 0-2 Abs Lymphs 1.0 1.0-4.8 Abs Mononuclear 0.3 0-0.8 Absolute Neutrophil Count 2.6 1.5-7.7 Abs Eosinophils 0 0-0.6 Abs Basophils 0 0-0.2 Comp Metabolic Panel 03/12/2010 Sodium 140 mmol/L 135-145 Potassium 4.1 mmol/L 3.5-5.0 Chloride 107 mmol/L 101-111 Co2 (Carbon Dioxide) 28.0 mmol/L 22-32 Anion Gap 5.0 mmol/L 2-11 21 Glucose 99 mg/dL 70-100 22 BUN 14 mg/dL 6-24 Creatinine 0.51 mg/dL 0.50-1.40 One Over Creatinine 1.90 BUN/Creatinine Ratio 27.5 High 8-20 Calcium 9.1 mg/dL 8.1-9.9 Total Protein 7.1 GM/DL 6.2-8.1 Albumin 3.8 GM/DL 3.6-5.4 Globulin 3.3 GM/DL 2-4 Albumin/Globulin Ratio 1.2 1-3 Bilirubin Total 0.7 mg/dL 0.4-1.5 23 Alkaline Phosphatase 46 U/L 30-110 Alt (SGPT) 23 U/L 14-54 Ast (Sgot) 24 U/L 12-42 eGFR Non- 138.6 > 60 eGFR 167.7 > 60 24 Laboratory test finding 03/12/2010 Troponin-I (TnI) 0.01 NG/ML 25 Laboratory test finding 01/01/2010 Vitamin B-12 592 pg/mL 26, 27 Comprehensive Metabolic 01/01/2010 Glucose 85 mg/dL 70-100 26 BUN 15 mg/dL 4-18 26 Creatinine, Serum 0.79 mg/dL 0.50-1.10 26 Sodium 142 mmol/L 136-146 26 Potassium 4.1 mmol/L 3.5-5.3 26 Chloride 104 mmol/L 98-110 26 Carbon Dioxide 30 mmol/L 20-32 26 Albumin 4.4 g/dL 3.5-4.7 26 Protein, Total 7.0 g/dL 6.4-8.3 26 Calcium 9.1 mg/dL 8.4-10.4 26 Alkaline Phosphatase 45 U/L 10-118 26 Sgot (Ast) 22 U/L 3-40 26 SGPT (Alt) 17 U/L 7-50 26 Bilirubin, Total 0.80 mg/dL 0.30-1.20 26 Laboratory test finding 01/01/2010 Triiodothyronine,Free,Ser 2.0 pg/mL 2.0-4.4 26 T-4 Free 1.0 ng/dL 0.8-1.8 26 Iron 118 g/dL 30-158 26 TSH (Thyrotropin) 1.090 uIU/ml 0.350-5.500 26 Vitamin D, 25 Oh 35.1 ng/mL 32.0-100.0 26, 28 CBC 01/01/2010 WBC 4.9 x10E3/uL 4.3-10.9 26 RBC 3.86 x10E6/uL 3.80-5.30 26 Hemoglobin 12.2 g/dL 11.8-15.8 26 Hematocrit 36.8 % 35.0-47.0 26 MCV 95.3 fl 82.0-98.0 26 MCH 31.6 pg 27.5-33.5 26 MCHC 33.2 g/dL 32.0-36.0 26 RDW 12.7 % 11.5-14.5 26 Platelet Count 248 x10E3/uL 130-400 26 MPV 8.9 fl 6.5-10.5 26 Segmented Neutrophils 66.9 % 44.0-74.0 26 Lymphocytes 26.0 % 15.0-45.0 26 Monocytes 5.7 % 2.0-13.0 26 Eosinophils 0.8 % 0.0-6.0 26 Basophils 0.6 % 0.0-2.0 26 Neutrophil Absolute 3.3 x10E3/uL 1.4-7.0 26 Lymphocytes Absolute 1.3 x10E3/uL 1.0-3.4 26 Monocyte Absolute 0.3 x10E3/uL 0.2-1.0 26 Eosinophil Absolute 0.0 x10E3/uL 0.0-0.5 26 Basophil Absolute 0.0 x10E3/uL 0.0-0.2 26 GFR Calculated 01/01/2010 GFR (Calculated) >60 26, 29 Lipid Profile 03/17/2008 Cholesterol, Total 185 mg/dL 120-200 30, 31 HDL Cholesterol 58 mg/dL 40-60 30 LDL Cholesterol, Calc. 111 mg/dL <130 30, 32 Triglycerides 80 mg/dL 30, 33 LDL/HDL Cholesterol 1.9 30, 34 Chol/HDL Cholesterol 3.2 30, 35 Ua - Non Micro (Fma) 02/20/2008 Appearance CLEAR Color YELLOW Glucose NEG Bilirubin NEG Ketones NEG SP Grav 1.015 Blood NEG PH 7.0 Protein NEG Urobil 0.2 Nitrite NEG Leukocytes (Fma/CMC/Centrex) NEG Laboratory test 02/20/2008 Thin Prep SEE NOTE 36 finding W/HPV(Lsil/MATT/Asc) CBC With Electronic 01/25/2008 White Blood Count 4.0 CUMM Low 4.8-10.8 Diff Stat Red Cell Count 3.77 CUMM Low 4.2-5.4 Hemoglobin 12.1 g/dL 12.0-16.0 Hematocrit 35 % 35-47 Mean Corpuscular Volume 92 um3 79-97 Mean Corpuscular Hemoglob 32 pg High 27-31 Mean Corpuscular HGB Cone 35 g/dL 32-36 Redcell Distribution WDTH 13 % 10.5-15 Platelet Count 231 CUMM 150-450 Mean Platelet Volume 6.1 um3 Low 7.4-10.4 Gran % 72.2 % 38-83 Lymph % 20.5 % 20-45 Mononuclear % 6.4 % 1-9 Eosinophil % 0.4 % 0-6 Basophil % 0.5 % 0-2 Abs Lymphs 0.8 Low 1.0-4.8 Abs Mononuclear 0.3 0-0.8 Absolute Neutrophil Count 2.9 1.5-7.7 Abs Eosinophils 0 0-0.6 Abs Basophils 0 0-0.2 Basic Metabolic Panel Stat 01/25/2008 Sodium 136 mmol/L 135-145 Potassium 3.5 mmol/L 3.5-5.0 Chloride 105 mmol/L 101-111 Co2 (Carbon Dioxide) 29.0 mmol/L 22-32 Anion Gap 2.0 mmol/L 2-11 37 Glucose 135 mg/dL High 70-100 38 BUN 13 mg/dL 6-24 Creatinine 0.7 mg/dL 0.5-1.4 One Over Creatinine 1.42 BUN/Creatinine Ratio 18.6 8-20 Calcium 8.6 mg/dL 8.1-9.9 39 Laboratory test finding 01/25/2008 Troponin-I (TnI) 0.04 NG/ML 0-0.06 40 CBC W/Manual Diff 06/25/2007 Manual Differential PERFORMED 41 WBC 6.0 x103 4.3-10.9 41 RBC 3.74 x106 Low 3.80-5.30 41 Hemoglobin 11.6 g/dL Low 11.8-15.8 41 Hematocrit 35.0 % 35.0-47.0 41 MCV 93.6 fl 82.0-98.0 41 MCH 31.0 pg 27.5-33.5 41 MCHC 33.1 g/dL 32.0-36.0 41 RDW 14.1 % 11.5-14.5 41 Platelet Count 174 x103 130-400 41 MPV 9.2 fl 6.5-10.5 41 Feflex Diff+Morph For CBC4D 06/25/2007 Segmented Neutrophils 71.0 % 44.0- 74.0 41 Band 0.0 % 0.0-4.0 41 Lymphocytes 25.0 % 15.0-45.0 41 Monocytes 4.0 % 2.0-13.0 41 Eosinophils 0.0 % 0.0-6.0 41 Basophils 0.0 % 0.0-2.0 41 Neutrophil Absolute 4.3 x103 1.4-7.0 41 Lymphocytes Absolute 1.5 x103 1.0-3.4 41 Monocyte Absolute 0.2 x103 0.2-1.0 41 Eosinophil Absolute 0.0 x103 0.0-0.5 41 Basophil Absolute 0.0 x103 0.0-0.2 41 Feflex Diff+Morph For CBC4D 06/18/2007 Segmented Neutrophils 73.0 % 44.0- 74.0 42 Band 1.0 % 0.0-4.0 42 Lymphocytes 14.0 % Low 15.0-45.0 42 Atypical Lymphocyte 1.0 % 42 Monocytes 10.0 % 2.0-13.0 42 Eosinophils 1.0 % 0.0-6.0 42 Basophils 0.0 % 0.0-2.0 42 Neutrophil Absolute 2.8 x103 1.4-7.0 42 Lymphocytes Absolute 0.5 x103 Low 1.0-3.4 42 Monocyte Absolute 0.4 x103 0.2-1.0 42 Eosinophil Absolute 0.0 x103 0.0-0.5 42 Basophil Absolute 0.0 x103 0.0-0.2 42 CBC W/Manual Diff 06/18/2007 Manual Differential PERFORMED 42 WBC 3.8 x103 Low 4.3-10.9 42 RBC 3.78 x106 Low 3.80-5.30 42 Hemoglobin 11.5 g/dL Low 11.8-15.8 42 Hematocrit 35.5 % 35.0-47.0 42 MCV 93.9 fl 82.0-98.0 42 MCH 30.4 pg 27.5-33.5 42 MCHC 32.4 g/dL 32.0-36.0 42 RDW 13.7 % 11.5-14.5 42 Platelet Count 230 x103 130-400 42 MPV 9.5 fl 6.5-10.5 42 Laboratory test finding 06/11/2007 Antinuclear AB (Bernadette) NEGATIVE Negative 43, 44 Rheumatoid Factor (RF) <11.0 IU/mL 0.0-20.0 43 TSH (Thyrotropin) 1.640 uIU/ml 0.350-5.500 43 CK, Total 36 U/L 29-229 43 Sedimentation Rate 10 MM/HR 0-20 43 Comprehensive Metabolic 06/11/2007 Glucose 93 mg/dL 70-100 43 BUN 12 mg/dL 4-18 43 Creatinine, Serum 0.9 mg/dL 0.5-1.2 43 Sodium 141 mmol/L 136-146 43 Potassium 4.1 mmol/L 3.5-5.3 43 Chloride 106 mmol/L 98-110 43 Carbon Dioxide 29 mmol/L 20-32 43 Albumin 3.9 g/dL 3.5-4.7 43 Protein, Total 6.6 g/dL 6.4-8.2 43 Calcium 8.8 mg/dL 8.4-10.4 43 Alkaline Phosphatase 54 U/L 10-118 43 Sgot (Ast) 26 U/L 3-40 43 SGPT (Alt) 32 U/L 7-50 43 Bilirubin, Total 0.40 mg/dL 0.30-1.20 43 CBC 06/11/2007 WBC 2.9 x103 Low 4.3-10.9 43 RBC 3.75 x106 Low 3.80-5.30 43 Hemoglobin 11.3 g/dL Low 11.8-15.8 43 Hematocrit 35.3 % 35.0-47.0 43 MCV 94.1 fl 82.0-98.0 43 MCH 30.1 pg 27.5-33.5 43 MCHC 32.0 g/dL 32.0-36.0 43 RDW 13.4 % 11.5-14.5 43 Platelet Count 195 x103 130-400 43 MPV 10.3 fl 6.5-10.5 43 Segmented Neutrophils 67.5 % 44.0-74.0 43 Lymphocytes 20.4 % 15.0-45.0 43 Monocytes 9.3 % 2.0-13.0 43 Eosinophils 1.4 % 0.0-6.0 43 Basophils 1.4 % 0.0-2.0 43 Neutrophil Absolute 2.0 x103 1.4-7.0 43 Lymphocytes Absolute 0.6 x103 Low 1.0-3.4 43 Monocyte Absolute 0.3 x103 0.2-1.0 43 Eosinophil Absolute 0.0 x103 0.0-0.5 43 Basophil Absolute 0.0 x103 0.0-0.2 43 Laboratory test finding 06/11/2007 GFR (Calculated) >60 43, 45 Throat-Beta Strept 08/20/2006 Throat-Beta Strep Culture NGNBS 46 Ua - Micro (Fma) 08/17/2006 Appearance CLEAR Color LT YELLOW Glucose NEG Bilirubin NEG Ketones NEG SP Grav <=1.005 Blood NEG PH 7.0 Protein, Random Urine NEG Urobil 0.2 Nitrite NEG Leukocytes (Fma/CMC/Centrex) 1+ Hyaline - /Lpf Granular - /Lpf WBC (Fma,Centrex) 10-12 RBC, Fluid - Mucus SM AMT /Lpf Epith FEW /Lpf Bacteria TRACE /Hpf Amorphous - /Lpf Crystals, Urine (Fma/CMC/CTX) - /Lpf Misc NOT A CLEAN CATCH Comprehensive Metabolic 08/17/2006 Glucose 78 mg/dL 70-100 47 BUN 10 mg/dL 4-18 47 Creatinine, Serum 0.9 mg/dL 0.5-1.2 47 Sodium 139 mmol/L 136-146 47 Potassium 4.2 mmol/L 3.5-5.3 47 Chloride 105 mmol/L 98-110 47 Carbon Dioxide 27 mmol/L 20-32 47 Albumin 4.4 g/dL 3.5-4.7 47 Protein, Total 7.2 g/dL 6.4-8.2 47 Calcium 9.2 mg/dL 8.4-10.4 47 Alkaline Phosphatase 50 U/L 10-118 47 Sgot (Ast) 20 U/L 3-40 47 SGPT (Alt) 13 U/L 7-50 47 Bilirubin, Total 0.80 mg/dL 0.30-1.20 47 Lipid Profile 08/17/2006 Cholesterol, Total 169 mg/dL 120-200 47, 48 HDL Cholesterol 51 mg/dL 40-60 47 LDL Cholesterol, Calc. 105 mg/dL <130 47, 49 Triglycerides 63 mg/dL 47, 50 LDL/HDL Cholesterol 2.1 47, 51 Chol/HDL Cholesterol 3.3 47, 52 Laboratory test finding 08/17/2006 TSH (Thyrotropin) 1.220 uIU/ml 0.350- 5.500 47 GFR (Calculated) >60 47, 53 Laboratory test finding 08/17/2006 Thin Prep W/HPV SEE IMAGE (Lsil/MATT/Asc) Laboratory test finding 06/06/2006 Quickstrep NEGATIVE Negative Throat - Beta Strep Fma NEGATIVE @ 48HRS Laboratory test finding 06/07/2002 Quickstrep POSITIVE Negative 1 SEE RESULT BELOW Name: KRYSTAL RAMOS Faisal : [address]: Thai De La Fuente MD Acct: [id number] Unit: [id number] AGE: 52 Location: [facility] Re10/23/17 SEX: F Status: REG REF SPEC: [id number] SHERON: 10/23/17-[address]: Thai De La Fuente MD REQ: [id number] RECD: 06/ STATUS: COMP _ S[facility]: ORDERED: Urine Culture COMMENTS: [id number] CRUZ TOP Urine Source: Random Procedure Result Reported Site Urine Culture Final 10/26/17- 911 ML No Growth (<1,000 CFU/mL) * ML - Main Lab . END OF REPORT DEPARTMENT OF PATHOLOGY, [address] [place] [address] Uzair Harvey M.D. Director [facility] # [id number] 2 SEE RESULT BELOW Name: KRYSTAL RAMOS: [address]: Alexandra Payne MD Acct: [id number] Unit: [id number] AGE: 51 Location: ED Re08/01/16 SEX: F Status: DEP ER SPEC: [id number] SHERON: 08/01/[address]: Elsie MELVIN REQ: [id number] RECD: 08/01/16 STATUS: ANTONIO MALIK DR: Chrissy Payne MD _ SOURCE: URINE SPDESC: ORDERED: Urine Culture Procedure Result Reported Site Urine Culture Final 08/02/16- 1633 ML No Growth (<1,000 CFU/mL) * ML - MAIN LAB ([facility]) . END OF REPORT * ML=Testing performed at Main Lab DEPARTMENT OF PATHOLOGY, [address] [place] [address] Uzair Harvey M.D. Director [facility] # [id number] 3 Because ethnic data is not always readily available, this report includes an eGFR for both -Americans and non- Americans. The National Kidney Disease Education Program (NKDEP) does not endorse the use of the MDRD equation for patients that are not between the ages of 18 and 70, are , have extremes of body size, muscle mass, or nutritional status, or are non- or non-. According to the National Kidney Foundation, irrespective of diagnosis, the stage of the disease is based on the level of kidney function: Stage Description GFR(mL/min/1.73 m(2)) 1 Kidney damage with normal or decreased GFR 90 2 Kidney damage with mild decrease in GFR 60-89 3 Moderate decrease in GFR 30-59 4 Severe decrease in GFR 15-29 5 Kidney failure <15 (or dialysis) 4 SEE RESULT BELOW Name: KRYSTAL RAMOS Faisal : [address]: Vaishali Greenberg Acct: [id number] Unit: [id number] AGE: 51 Location: [facility] Re07/26/16 SEX: F Status: REG REF SPEC: [id number] SHERON: 07/26/[address] [facility] [address]: Vaishali Greenberg REQ: [id number] RECD: 07/26/16 STATUS: PAYTON MALIK DR: Chrissy Davis MD _ ORDERED: IMAGE ANALYSIS, HPV/Thin Prep COMMENTS: [id number] FINAL DIAGNOSIS Negative for Intraepithelial lesion or Malignancy A. Ectocervical/Endocervical Specimen Adequacy: Satisfactory of evaluation Transformation zone component identified Patient Information: HPV: High risk HPV RNA testing regardless of pap results. Actual Specimen Date: 07/26/16 Last Menstrual Date: 07/22/16 Date Time Test Result Flag (u) Normal Range 07/26/16913 HPV RNA Negative Negative The high-risk HPV types detected by the assay include: 16, 18, 31, 33, 35, 39, 45, 51, 52, 56, 58, 59, 66, and 68. Signed (signature on file) BENITO Carter(ASCP) 07/27 2859 This Pap test was evaluated with the assistance of the ThinPrep Test Imaging System. Due to cytologic findings at the procurement clerk microscope, comprehensive manual rescreening by a Implementation Project Coordinator may be required. The Pap Smear is a screening test designed to aid in the detection of premalignant and malignant conditions of the uterine cervix. It is not a diagnostic procedure and should not be used as the sole means of detecting cervical cancer. Both false- positive and false- negative reports do occur. Depending on your risk status, a Pap smear should be obtained and evaluated every 1-3 years. END OF REPORT * ML=Testing performed at Main Lab DEPARTMENT OF PATHOLOGY, [address] [place] [address] Uzair Harvey M.D. Director [facility] # [id number] 5 FASTING; 1 sst; 1 purple top tube 6 >59 mL/min/1.73m2 7 >59 mL/min/1.73m2 Note: Persistent reduction for 3 months or more in an eGFR <60 mL/min/1.73m2 defines CKD. Patients with eGFR values >=60 mL/min/1.73m2 may also have CKD if evidence of persistent proteinuria is present. Additional information may be found at www.kidney.org/professionals/kdoqi. 8 CHOL/HDL Risk Ratio Levels MALE FEMALE 1/2 X Average 3.4 3.3 Average 5.0 4.4 2 X Average 9.5 7.0 3 X Average 24.0 11.0 9 Optimal under 100 mg/dl Near or above Optimal 100 - 129 mg/dl Borderline High 130 - 159 mg/dl High 160 - 189 mg/dl Very High above 190 mg/dl 10 LDL/HDL Risk Ratio Levels MALE FEMALE 1/2 X Average 1.0 1.5 Average 3.6 3.2 2 X Average 6.3 5.0 3 X Average 8.0 6.1 11 RUN DATE: 04/14/13 [facility] LAB LIVE PAGE 1 RUN TIME: [address] [place] [address] Specimen Inquiry Name: JOEL RAMOSMARICARMEN Malone : [address]: Peewee Moses MD Acct: [id number] Unit: [id number] AGE: 48 Location: [facility] Re04/10/13 SEX: F Status: DEP ER SPEC: [id number] SHERON: 04/10/13-[address] [facility] [address]: Peewee Moses MD REQ: [id number] RECD: 04/11/134 STATUS: ANTONIO MALIK DR: Charlie José MD _ SOURCE: THROAT SPDESC: ORDERED: Throat Beta Str Procedure Result Verified Site Throat Beta Strep Culture Final 04/14/13- 0752 ML Organism 1 STREP GRP A BY BACITRACIN DISC END OF REPORT * ML=Testing performed at Main Lab DEPARTMENT OF PATHOLOGY, [address] [place] [address] Uzair Harvey M.D. Director [facility] Permit #[id number] 12 [employer]. DEPARTMENT OF PATHOLOGY or Extension 3655 SHOE CEMENTER CYTOLOGY REPORT PATIENT: KRYSTAL RAMOS : 1965 AGE: 47 Y SEX: F ACCT: [id number] PROCEDURE DATE: 10/12/2012 DATE RECEIVED: 10/15/2012 REQUESTING PROVIDER: SAKINA RAMOS LOCATION: [facility] Case No. [id number] PATIENT DATA: [id number] SPECIMEN SUBMITTED: * * (HPVII) THIN PREP W/HPV (LSIL/ASC/MATT) * * CERVICAL/ENDOCERVICAL RELEVANT HISTORY: Menarche: Y Contraceptive: NONE : 4 Prev.normal: 4 YEARS AGO Para: 3 Comment: LMP: 2 WEEKS AGO SPECIMEN ADEQUACY SATISFACTORY FOR EVALUATION, ENDOCERVICAL TRANSFORMATION ZONE COMPONENT PRESENT GENERAL CATEGORIZATION NEGATIVE FOR INTRAEPITHELIAL LESIONS OR MALIGNANCY RECOMMENDATIONS Refer to the corresponding web sites for 2012 updated general recommendation guidelines of [place].S. preventive service task force for cervical cancer screening, and www.asccp.org//fosfcylph2904. COMMENTS Thin Prep Pap tests are examined with an FDA approved location-guidance system. ADDITIONAL COPIES SENT TO: Screened/Rescreened Electronically Signed Sign Out Date/Time: by: by: BENITO MOELLER(ASCP) 10/15/2012 16:40 Note: The Pap smear is a screening test designed to aid in the detection of premalignant and malignant conditions of the uterine cervix. It is not a diagnostic procedure and should not be used as the sole means of detecting cervical cancer. Both false-positive and false-negative reports do occur. 00 UA Pap Smear performed at [employer] Dir: Juan Diego Gtz MD, [address] [facility] [address] 01 carry in worker Tamika Lewis Dir: Shahid Love MD, [address] [facility] [id number] 02 BN Lab [facility] [place] Dir: Chris Argueta MD, [address] [place] [phone] For inquiries regarding HPV test results, the physician may contact Lab [facility]ika: [phone] . 13 2SST 14 Please note that the functional sensitivity (value corresponding to an analytical imprecision of 20% CV) of this assay is 0.019 mIU/mL. All results below 0.019 mIU/mL are subject to analytical imprecision. . 15 2 SSTS; 1 LAV 16 >59 mL/min/1.73m2 17 >59 mL/min/1.73m2 Note: Persistent reduction for 3 months or more in an eGFR <60 mL/min/1.73m2 defines CKD. Patients with eGFR values >=60 mL/min/1.73m2 may also have CKD if evidence of persistent proteinuria is present. Additional information may be found at www.kidney.org/professionals/kdoqi. 18 Effective 09/20/2010 Please note change in units and reference range. 19 Please note updated reference range, effective 12/03/09 20 New Reference Range and Interpretation effective 02/15/2002 TnI (ng/ml) INTERPRETATION Less Than 0.06 ng/mL NOT SUPPORTIVE OF DIAGNOSIS OF [place] 0.06 - 0.50 ng/ml INDETERMINATE: SUGGEST SERIAL STUDIES IF CLINICALLY INDICATED. Greater than 0.5 ng/mL CONSISTENT WITH DIAGNOSIS OF [place] . 21 Anion gap measurement may be of limited value in the presence of any alkalosis, especially in a combined acid base disorder. . 22 Note change in reference range as of 01/03/08. The change was based on recommendations from the [place] [employer]. 23 A metabolite of Naproxen, O-desmethylnaproxen, has been shown to interfere with the Jendrassik-Bob method for measuring total bilirubin. Samples from patients who have taken Naproxen have shown spurious elevation in total bilirubin levels. 24 Because ethnic data is not always readily available, this report includes an eGFR for both -Americans and non- Americans. The National Kidney Disease Education Program (NKDEP) does not endorse the use of the MDRD equation for patients that are not between the ages of 18 and 70, are , have extremes of body size, muscle mass, or nutritional status, or are non- or non-. According to the National Kidney Foundation, irrespective of diagnosis, the stage of the disease is based on the level of kidney function: Stage Description GFR(mL/min/1.73 m(2)) 1 Kidney damage with normal or decreased GFR 90 2 Kidney damage with mild decrease in GFR 60-89 3 Moderate decrease in GFR 30-59 4 Severe decrease in GFR 15-29 5 Kidney failure <15 (or dialysis) 25 New Reference Range and Interpretation effective 02/15/2002 TnI (ng/ml) INTERPRETATION Less Than 0.06 ng/mL NOT SUPPORTIVE OF DIAGNOSIS OF [place] 0.06 - 0.50 ng/ml INDETERMINATE: SUGGEST SERIAL STUDIES IF CLINICALLY INDICATED. Greater than 0.5 ng/mL CONSISTENT WITH DIAGNOSIS OF [place] . 26 2SST,1LAV 27 Greater than or equal to 211 is normal. . 28 Recent studies consider the lower limit of 32.0 ng/mL to be a threshold for optimal health. Gabo METZGER. J Nutr. 2005 Jun;135(2):317-22. 29 mL/min/1.73m2 . Normal Function or Mild Renal Disease, if clinically at risk: >or=60 Moderately decreased: 30 - 59 Severely decreased: 15 - 29 Renal Failure: <15 . Please note that the MDRD equation requires an additional adjustment for -Americans (multiply the GFR result by 1.210). . Glomerular Filtration Rate (GFR) is estimated based on the MDRD equation, which assumes a steady state for creatinine ([place]ah Int Med 139/2 137-149, 2003), as recommended by the National Kidney Disease Education Program in conjunction with the National Institutes of Health and the National Kidney Foundation. . Clinical conditions in which it may be necessary to measure GFR by using clearance methods include extremes of age and body size, severe malnutrition or obesity, diseases of skeletal muscle, paraplegia or quadriplegia, vegetarian diet, rapidly changing kidney function, and calculation of the dose of potentially toxic drugs that are excreted by the kidneys. 30 1 SST 31 Cholesterol Risk Levels (NIH) Recommended: under 200 mg/dl Borderline : 200-239 mg/dl High Risk : Above 240 mg/dl 32 The National Cholesterol Education Program recommends the following ranges for LDL Cholesterol: Optimal under 100 mg/dl Near or above Optimal 100 - 129 mg/dl Borderline High 130 - 159 mg/dl High 160 - 189 mg/dl Very High above 190 mg/dl 33 Triglyceride Risk Levels: Normal : <150 mg/dl Borderline : 150-199 mg/dl High : 200-499 mg/dl Very High : >500 mg/dl 34 LDL/HDL Risk Ratio Levels MALE FEMALE 1/2 X Average 1.00 1.47 Average 3.55 3.22 2 X Average 6.25 5.03 3 X Average 7.99 6.14 35 CHOL/HDL Risk Ratio Levels MALE FEMALE 1/2 X Average 3.4 3.3 Average 5.0 4.4 2 X Average 9.5 7.0 3 X Average 24.0 11.0 36 [facility] [employer] DEPARTMENT OF PATHOLOGY or Extension 6079 SHOE CEMENTER CYTOLOGY REPORT PATIENT: KRYSTAL RAMOS : 1965 AGE: 42 Y SEX: F ACCT: [id number] PROCEDURE DATE: 02/20/2008 DATE RECEIVED: 02/21/2008 REQUESTING PHYSICIAN: OPAL DE LA GARZA CNP-F LOCATION: [facility] [place] Case No. [id number] PATIENT DATA: [id number] SPECIMEN SUBMITTED: * * (HPVII) THIN PREP W/HPV (LSIL/ASC/MATT) * * ENDOCERVICAL RELEVANT HISTORY: LMP: 02/06/2008 : 4 Para: 3 Contraceptive: CONDOMS Prev.normal: 08/19 SPECIMEN ADEQUACY SATISFACTORY FOR EVALUATION, ENDOCERVICAL TRANSFORMATION ZONE COMPONENT PRESENT GENERAL CATEGORIZATION NEGATIVE FOR INTRAEPITHELIAL LESIONS OR MALIGNANCY ADDITIONAL COPIES SENT TO: Screened/Rescreened by: Electronically Signed by: BENITO JASON(ASCP) Signed Date and Time: 02/26/2008 13:18 Thin Prep Pap tests are examined with an FDA-approved location-guidance system (73767). Performed @ [employer] [address] [place] [address] 37 Anion gap measurement may be of limited value in the presence of any alkalosis, especially in a combined acid base disorder. . 38 Note change in reference range as of 01/03/08. The change was based on recommendations from the [place] Diabetes Association. 39 Please note change in reference range effective 07 . 40 New Reference Range and Interpretation effective 02/15/02 TnI (ng/ml) INTERPRETATION <0.06 ng/ml NOT SUPPORTIVE OF DIAGNOSIS OF [place] 0.06 - 0.50 ng/ml INDETERMINATE: SUGGEST SERIAL STUDIES IF CLINICALLY INDICATED. > 0.5 ng/ml CONSISTENT WITH DIAGNOSIS OF [place] . 41 1 LAV 42 1 LAV TOP 43 3 SST, 2 LAV TOP 44 (Performed by Enzyme Immunoassay, EIA) 45 mL/min/1.73m2 . Normal Function or Mild Renal Disease, if clinically at risk: >or=60 Moderately decreased: 30 - 59 Severely decreased: 15 - 29 Renal Failure: <15 . Please note that the MDRD equation requires an additional adjustment for -Americans (multiply the GFR result by 1.210). . Glomerular Filtration Rate (GFR) is estimated based on the MDRD equation, which assumes a steady state for creatinine ([place]ah Int Med 139/2 137-149, 2003), as recommended by the National Kidney Disease Education Program in conjunction with the National Institutes of Health and the National Kidney Foundation. . Clinical conditions in which it may be necessary to measure GFR by using clearance methods include extremes of age and body size, severe malnutrition or obesity, diseases of skeletal muscle, paraplegia or quadriplegia, vegetarian diet, rapidly changing kidney function, and calculation of the dose of potentially toxic drugs that are excreted by the kidneys. 46 NEGATIVE FOR GROUP A STREP 47 FASTING; 1 SST 48 Cholesterol Risk Levels (NIH) Recommended: under 200 mg/dl Borderline : 200-239 mg/dl High Risk : Above 240 mg/dl 49 The National Cholesterol Education Program recommends the following ranges for LDL Cholesterol: Optimal under 100 mg/dl Near or above Optimal 100 - 129 mg/dl Borderline High 130 - 159 mg/dl High 160 - 189 mg/dl Very High above 190 mg/dl 50 Triglyceride Risk Levels: Normal : <150 mg/dl Borderline : 150-199 mg/dl High : 200-499 mg/dl Very High : >500 mg/dl 51 LDL/HDL Risk Ratio Levels MALE FEMALE 1/2 X Average 1.00 1.47 Average 3.55 3.22 2 X Average 6.25 5.03 3 X Average 7.99 6.14 52 CHOL/HDL Risk Ratio Levels MALE FEMALE 1/2 X Average 3.4 3.3 Average 5.0 4.4 2 X Average 9.5 7.0 3 X Average 24.0 11.0 53 mL/min/1.73m2 . Normal Function or Mild Renal Disease, if clinically at risk: >or=60 Moderately decreased: 30 - 59 Severely decreased: 15 - 29 Renal Failure: <15 . Please note that the MDRD equation requires an additional adjustment for -Americans (multiply the GFR result by 1.210). . Glomerular Filtration Rate (GFR) is estimated based on the MDRD equation, which assumes a steady state for creatinine (Beulah Int Med 139/2 137-149, 2003), as recommended by the National Kidney Disease Education Program in conjunction with the National Institutes of Health and the National Kidney Foundation. . Clinical conditions in which it may be necessary to measure GFR by using clearance methods include extremes of age and body size, severe malnutrition or obesity, diseases of skeletal muscle, paraplegia or quadriplegia, vegetarian diet, rapidly changing kidney function, and calculation of the dose of potentially toxic drugs that are excreted by the kidneys. . Procedures Date CPT Code Description Status 01/12/2018 Mammogram Completed 06/28/2017 49972 Remove Impact Cerumen Irrigati Completed 10/16/2012 Mammogram Completed 07/28/2011 75469 Remove Impacted Cerumen Completed 05/07/2010 15371 Pulse Oximetry Completed 05/14/2009 14905 Remove Impacted Cerumen Completed 03/24/2008 41728 Remove Impacted Cerumen Completed 02/29/2008 Mammogram Completed 02/20/2008 54271 Electrocardiogram Complete Completed Encounters Type Date Location Provider CPT E/M Dx Office Visit 01/05/2018 9:30a [facility] Office Angeli Vito Moses, DAVONTE [address] G25.0 I10 Z12.31 Office Visit 10/23/2017 9:50a [facility] [place] [address] H69.91 N39.0 Office Visit 08/15/2017 2:00p [facility] [place] [address] J30.89 Office Visit 06/28/2017 9:00a [facility] Office Elsie Jacquestimothy [facility] [address]87[address] J01.90 H68.003 H61.23 R09.81 Office Visit 04/18/2016 3:30p Main Office Tana De La Garza [facility] 25010 H81.391 Office Visit 01/01/2016 3:00p Main Office Tana De La Garza [facility] 31303 I10 Office Visit 12/29/2014 10:40a [facility] Office Chrissy Davis M.D. 29946 386.10 380.4 Office Visit 02/26/2014 8:40a [facility] Office Chrissy Davis M.D. 52659 V70.0 401.9 333.1 296.32 626.2 v04.81 Office Visit 10/12/2012 9:00a Main Office Tana De La Garza [facility] 898[address] V72.31 Office Visit 07/16/2012 4:10p [facility] Office Charlie José M.D. 33512 724.2 Office Visit 04/23/2012 9:40a [facility] Office Charlie José M.D. 06781 401.9 Office Visit 04/02/2012 9:40a [facility] Office Charlie José M.D. 33084 401.9 388.9 v04.81 Office Visit 08/23/2011 2:40p [facility] Office Charlie José M.D. 13671 386.10 401.9 Office Visit 08/16/2011 2:40p [facility] Office Charlie José M.D. 20977 386.10 Office Visit 08/05/2011 1:40p [facility] Marbella Adams M.D. 35979 386.10 Office Visit 07/28/2011 6:40p Main Office Charlie José M.D. 55954 386.10 380.4 Office Visit 10/12/2010 12:00p Main Office Kale Martino M.D. 24652 785.6 Office Visit 05/07/2010 10:15a Main Office Tana De La Garza, [facility] 88257 466.0 Office Visit 01/01/2010 1:45p Main Office Tana De La Garza [facility] 22524 780.79 Office Visit 06/11/2008 4:00p [facility] Charlie José M.D. 89285 401.9 Office Visit 05/21/2008 5:40p Main Office Charlie José M.D. 74514 466.0 Office Visit 03/24/2008 9:45a Main Office Alexandra Fink [facility] 88739 380.4 388.70 Office Visit 03/05/2008 10:00a [facility] Office Charlie José M.D. 33046 374.44 786.59 V70.0 V77.91 V04.81 V06.5 Office Visit 02/20/2008 10:00a Main Office JOE WenP 34511 V72.31 786.59 Office Visit 01/30/2008 4:30p [facility] Charlie José M.D. 27684 786.59 401.9 300.00 Office Visit 07/13/2007 4:00p Main Office Charlie José M.D. 60462 288.50 311 401.9 Office Visit 06/25/2007 9:40a Main Office Charlie José M.D. 97024 465.9 288.50 401.9 311 Office Visit 06/18/2007 8:40a Main Office Charlie José M.D. 71235 288.50 716.99 401.9 Office Visit 06/11/2007 11:10a Main Office Charlie José M.D. 17523 716.99 Office Visit 05/22/2007 3:20p [facility] Office Thai Metcalf M.D. 53309 923.3 Office Visit 03/22/2007 11:20a [facility] Office Charlie José M.D. 05145 461.9 Office Visit 08/17/2006 9:30a Main Office Elsiejose de jesus Huntley, 57218 791.7 Danielle V70.0 V72.31 Office Visit 06/06/2006 3:00p [facility] Office Basia Harvey-Yari 66327 465.9 462 Office Visit 07/30/2002 9:15a [facility] Office Basia Harvey-Yari 76072 461.9 Office Visit 06/07/2002 2:30p Main Office Basia Juarez-Yari 42903 462 Plan of Care 01/19/2018 - Angeli Moses, NPI10 Essential (primary) hypertensionNew Medication:Amlodipine Besylate 5 mgComments:Ok to change back to amlodipine.G25.0 Essential tremorComments:Follow up with neurology in May as planned. Continue to discuss possible medication changes withDr. Kyle.
--- OUTSIDE RECORDS SUMMARY | 2018-01-22 17:57 | XMS REPORT ---
:1965 External Reference #:[id number] Author Organization [facility] Address [address] [place] [address] Phone [phone] Care Team Providers Name Role Phone Chrissy Davis MD Primary Care Physician Unavailable Payers Type Date Identification Numbers Payment Provider Subscriber Commercial Policy Number: [id number] [place] Peewee Chang PayID: [id number] [employer] [address] [place] [address] Problems Description No Information Family History Date Family Member(s) Problem(s) Comments Father A&W Mother Parkinson's Disease Mother Dementia Children 3 First Son A&W First Daughter A&W Second Daughter A&W Siblings 1 First Brother Gout Paternal Grandfather due to Unknown Causes () Paternal Grandmother due to Lung Cancer () Maternal Grandfather due to Liver Cancer () Maternal Grandmother due to Cancer () - nasal Social History Type Date Description Comments Education Highest level completed, Doctorate Marital Status Lives With Spouse Lives With Children 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 Cigarette Use Never Smoked Cigarettes ETOH Use Rarely consumes alcohol Recreational Drug Use Denies Drug Use Smoking Patient has never smoked Daily Caffeine Consumes on average 2 cups of coffee per day Daily Caffeine Consumes on average 1 cup of tea per day Exercise Type/Frequency Exercises regularly Seat Belt/Car Seat Always uses seat belt Currently Active Patient is currently sexually active Contraceptive Methods Current methods include condoms STD's No STD History Allergies, Adverse Reactions, Alerts Date Description Reaction Status Severity Comments 07/26/2016 Amoxicillin active Medications Medication Date Status Form Strength Qnty SIG Indications Ordering Provider Lexapro Active Unknown Rexulti Active Unknown Amlodipine Besylate Active Unknown Multivitamins Active Unknown Cytomel Active Unknown Medications Administered in Office Medication Date Status Form Strength Qnty SIG Indications Ordering Provider PT SCRN Tbco Administered Injection Farrukh QuintinAden Id as Non User 018 Danielle Ibarra No PT Tbco Administered Injection Vaishali SCRN RNG 018 LEENA Patiño PT SCRN Tbco Administered Injection Vaishali Id as Non User 018 LEENA Patiño Vital Signs Date Vital Result Comment 01/02/2018 BP Systolic 134 mmHg BP Diastolic 82 mmHg Height 63.50 inches 5'3.50" Weight 132.00 lb BMI (Body Mass Index) 23.0 kg/m2 Last Menstrual Period 4638559 4 Parity 3 11/23/2017 BP Systolic 110 mmHg BP Diastolic 68 mmHg Height 63.50 inches 5'3.50" Weight 133.00 lb BMI (Body Mass Index) 23.2 kg/m2 Last Menstrual Period 0012592 4 Parity 3 09/21/2016 BP Systolic 130 mmHg BP Diastolic 80 mmHg Height 63.50 inches 5'3.50" Weight 130.00 lb BMI (Body Mass Index) 22.7 kg/m2 Last Menstrual Period 3616583 4 Parity 3 08/23/2016 BP Systolic 124 mmHg BP Diastolic 80 mmHg Height 63.50 inches 5'3.50" Weight 131.00 lb BMI (Body Mass Index) 22.8 kg/m2 Last Menstrual Period 4398734 4 Parity 3 07/26/2016 BP Systolic 130 mmHg BP Diastolic 80 mmHg Height 63.50 inches 5'3.50" Weight 127.00 lb BMI (Body Mass Index) 22.1 kg/m2 Last Menstrual Period 6262454 4 Parity 3 Results Test Date Test Result H/L Range Note Laboratory test 07/26/2016 FSH 30.7 mIU/mL 1 finding Thyroid Function 07/26/2016 Thyroid Stim Hormone 2.5 mIU/L 0.3-4.2 2 [place] Laboratory test 07/26/2016 HCG < 0.60 mIU/mL 3 finding Laboratory test 07/26/2016 Cytology SEE RESULT BELOW 4 finding Human Papilloma Virus Rna Negative Negative 5 Laboratory test finding 04/29/2004 TSH 0.57 MIU/ML 0.34-5.60 Gram Positive Sensitivity 11/27/2003 Ampicillin <=0.25 Chloramphenicol <=4 Clindamycin <=0.25 Erythromycin <=0.25 Levofloxacin 1 Oflaxacin 1 Penicillin <=0.12 Tetracycline >=16 Vancomycin <=1 Vaginal Cult For GRP B 11/26/2003 Genital For GRP B Strep [BETA STREP GROU < SEE 6 Strep Only NOTE> 1 Normally menstruating females - Follicular phase 3 - 9 - Mid-cycle peak 4 - 23 - Luteal phase 1 - 6 Postmenopausal females 16 - 114 2 Test Performed by: [address] [address] 3 <5.0 Negative 5.0 - 25.0 Indeterminate (Repeat testing recommended after 72 hours) >25.0 Positive Perimenopausal women can display HCG levels of up to 20 mIU/mL 4 SEE RESULT BELOW Name: KRYSTAL ROLON : [address]: Vaishali Greenberg Acct: [id number] Unit: [id number] AGE: 51 Location: [facility] Re07/26/16 SEX: F Status: REG REF SPEC: [id number] SHERON: 07/26/[address]: Vaishali HDEZ C REQ: [id number] RECD: 07/26/161208 STATUS: PAYTON MALIK DR: Chrissy Davis MD _ ORDERED: IMAGE ANALYSIS, HPV/Thin Prep COMMENTS: [id number] FINAL DIAGNOSIS Negative for Intraepithelial lesion or Malignancy A. Ectocervical/Endocervical Specimen Adequacy: Satisfactory of evaluation Transformation zone component identified Patient Information: HPV: High risk HPV RNA testing regardless of pap results. Actual Specimen Date: 07/26/16 Last Menstrual Date: 07/22/16 Date Time Test Result Flag (u) Normal Range 07/26/16 0914 HPV RNA Negative Negative The high-risk HPV types detected by the assay include: 16, 18, 31, 33, 35, 39, 45, 51, 52, 56, 58, 59, 66, and 68. Signed (signature on file) BENITO Carter(ASCP) 07/27 1327 This Pap test was evaluated with the assistance of the [employer] Digital LabsPrep Test Imaging System. Due to cytologic findings at the coupon collection clerk microscope, comprehensive manual rescreening by a Lands Resource Manager may be required. The Pap Smear is [...] performed at Main Lab DEPARTMENT OF PATHOLOGY, [address] [place] [address] Uzair Harvey M.D. Director [facility] # [id number] 5 The high-risk HPV types detected by the assay include: 16, 18, 31, 33, 35, 39, 45, 51, 52, 56, 58, 59, 66, and 68. 6 [BETA STREP GROUP B] POSITIVE FOR GRP B BETA STREP BETA STREP GROUP B Procedures Date CPT Code Description Status 01/02/2018 05384 Echography Transvaginal Completed 08/23/2016 78996 Echography Transvaginal Completed 10/16/2012 Mammogram Completed 01/16/2004 65294 Care Only Completed 12/23/2003 56065 Care Completed 12/23/2003 01947 Delivery Only Completed 12/23/2003 72187 Antepartum Care 7 Or More Visits Completed 12/15/2003 53238 Echography Uterus Limited Completed 12/15/2003 28027 Antepartum Care 7 Or More Visits Completed 12/12/2003 44002 Non-Stress Test Completed 12/10/2003 63484 Echography Uterus Follow-Up Or Repeat Completed 12/04/2003 20948 Care Completed 12/04/2003 55332 Antepartum Care 7 Or More Visits Completed 11/26/2003 07999 Care Completed 11/26/2003 20344 Echography Uterus Limited Completed 11/26/2003 77935 Antepartum Care 7 Or More Visits Completed 11/10/2003 95566 Antepartum Care 7 Or More Visits Completed 11/10/2003 34250 Care Completed 10/29/2003 99905 Care Completed 10/29/2003 86462 Antepartum Care 7 Or More Visits Completed 10/14/2003 28018 Antepartum Care 4-6 Visits Completed 10/14/2003 82115 Care Completed 09/29/2003 58400 Antepartum Care 4-6 Visits Completed 09/01/2003 01065 Antepartum Care 4-6 Visits Completed 09/01/2003 69052 Care Completed 08/04/2003 83043 Antepartum Care 4-6 Visits Completed 08/04/2003 16033 Care Completed 06/24/2003 89868 Care Completed Encounters Type Date Location Provider CPT E/M Dx Office Visit 01/02/2018 3:20p [facility] Farrukh Ibarra M.D. 53388 D25.1 Office Visit 11/23/2017 10:40[place] [address] Z01.419 N93.8 D25.9 Office Visit 09/21/2016 8:40a [facility] Farrukh Ibarra M.D. 76286 N92.1 Office Visit 08/23/2016 1:20p [place] [address] N92.6 Office Visit 07/26/2016 8:40a [place] [address] Z01.419 Z13.0 Office Visit 04/29/2004 12:40p [facility] Balwinder Chávez M.D. 33266 V72.31 Office Visit 07/03/2003 10:45a [facility] Balwinder Chávez M.D. 03364 V22.1 Office Visit 06/24/2003 10:00a [facility] Lilian Nicholson CNM 90177 V22.1 Plan of Care 01/02/2018 - Farrukh Ibarra M.D.D25.1 Intramural leiomyoma of uterusComments: unchanged fibroids
--- OUTSIDE RECORDS SUMMARY | 2018-01-22 17:57 | XMS REPORT ---
:1965 External Reference #:[id number] Author Organization [facility] Address [address] [place] [address] Phone [phone] Care Team Providers Name Role Phone Chrissy Davis M.D. Care Team Information Jig And Fixture Maker Unavailable Chrissy Davis M.D. 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 s by mouth Josué twice KNOCK OUT HAND daily Multi Vitamin 12/31 Active Tablets once Tana Daily daily Juan Pablo, DRAGGER Meclizine HCL 12/29 Active Tablets 25mg 30tab take 1/2- H81.391 s 1 tablet Juan Pablo, three DRAGGER times a day if needed for dizziness Fish Oil 02/26 Active Capsules 1000mg 1 by mouth Medicine every day [facility] Lexapro Active 20mg 1 05/16 PO 296.32 Family / qd Medicine [facility] Rexulti Active Tablets 2mg qd Unknown /0000 Cytomel Active Tablets Unknown /0000 Sulfamethoxazole 10/23 Hx Tablets 800-160mg 6tabs twice a N39.0 Thai T. /Trimethoprim day Leisa, Jerome FRIEDMAN 01/05 Physical Therapy 04/18 Hx evaluate H81.391 and treat Juan Pablo, - vertigo DRAGGER 06/28 d\\ crystal formation in right inner ear Norvasc 12/31 Hx Tablets 5mg 90tab Take 1 I1 s Tablet By Juan Pablo - Mouth DRAGGER 01/05 Daily Norvasc 06/04 Hx Tablets 5mg 30tab take one I10 s tablet by Ryan, - mouth one M.DAden 12/31 daily Ibuprofen 07/16 Hx Tablets 600mg 50tab 1 po tid 724.2 Guerra A. /2012 s prn Daneille José - 10/12 Cyclobenzaprine 07/16 Hx Tablets 10mg 20tab take 1 724.2 Guerra A. HCL s tablet by Danielle José - mouth 10/12 evening if needed for muscle spasm Fluticasone 04/02 Hx Suspension 50mcg/Act 16uni spray 2 388.9 Guerra A. Propionate ts sprays Danielle José - into each 10/12 nostril once daily Amlodipine 04/02 Hx Tablets 5mg 30tab take one 401.9 Chrissy Besylate s tablet by [place], - mouth one M.DAden 06/04 time daily Amlodipine 09/08 Hx Tablets 10mg 30tab Take One Guerra A. Besylate s Tablet By Danielle José - Mouth One 04/02 Daily Medrol 08/22 Hx Tablets 4mg 1tabs dose-pack 386.10 Guerra . as Danielle José - instructe 04/02 Fluticasone 08/22 Hx Suspension 50mcg/Act 1unit spray 2 386.10 Guerra A. Propionate s sprays Danielle José - into each 04/02 nostril once daily Transderm-Scop 08/08 Hx Patches 1.5mg 3unit apply one 72HR s patch Danielle José - every 08/15 days prn Meclizine HCL 07/27 Hx Tablets 12.5mg 30tab one to 386.10 s two tab Danielle José - po every 08/04 12 Amlodipine 05/16 Hx Tablets 2.5mg 90tab Take One Guerra A. s Tablet By Danielle José - Mouth One 09/08 Daily Zithromax 05/07 Hx Tablets 250mg 6Tabs 2 po qd 466.0 today , Juan Pablo, - then 1 po DRAGGER 10/12 qd times 4 Norvasc 08/08 Hx Tabs 2.5mg 90tab Take One Guerra . s Tablet By Danielle José - Mouth One 05/16 Daily Abilify 05/14 Hx Tablets 5mg 1/2 po qd [facility] Fish Oil 06/11 Hx Capsules 3 po qd Guerra Danielle José - 08/22 Azithromycin 05/21 Hx Tablets 250mg 6tabs 2 po 466.0 Guerra A. /2008 today and Danielle José - 1 po [...] Tablets 250mg 9tabs 2 po qd 465.9 . for three Danielle José - days , then 1 po /2007 qd 3 Motrin 06/11 Hx Tablets 600mg 60tab 1 PO tid 716.99 Guerra A. s prn Danielle José - 06/21 Keflex 05/22 Hx Capsules 500mg 14cap 1 po bid Thai J. Jerome Nieves M.D. 06/11 Doxycycline 07/30 Hx 100mg 20uni 1 po bid Guerra A. ts Danielle José - 05/22 Keflex 06/07 Hx 500 20uni 1 bid X Kirstin ts 10 Days Maday, - Afnp-C 06/17 Wellbutrin XL Hx Tablets 150mg 1 po qd Unknown /0000 - Abilify Hx Tablets 2mg 30tab 1 po qd Unknown /0000 s - 06/28 Cytomel Hx Tablets 50mcg 2 po qd Unknown / - 02/25 Vitamin D Hx Capsules 1000Unit 90cap 1 po qd Unknown / s - 08/22 Claritin D Hx otc Unknown / - 08/22 Immunizations CPT Code Status Date Vaccine Lot # [id number] Given 02/20/2015 Influenza Vac, Quadrivalent, Slit Virus, Im [id number] Given 02/26/2014 DO Not Use Split Influenza Virus Vaccine [id number] 44675 Given 02/13/2013 DO Not Use Split Influenza Virus Vaccine [id number] 73465 Given 04/02/2012 DO Not Use Split Influenza Virus Vaccine [id number] 02756 Given 03/05/2011 DO Not Use Split Influenza Virus Vaccine [id number] 25889 Given 02/06/2010 DO Not Use Split Influenza Virus Vaccine [id number] 88780 Given 05/14/2009 H1N1 Nasal Virus Vaccine [id number] 32476 Given 05/14/2009 H1N1 Immunization Intramuscular/Intranasal W Counseling 47761 Given 04/18/2009 DO Not Use Split Influenza Virus Vaccine [id number] 38848 Given 03/05/2008 Tdap Tetanus, W Pertussis [id number] 76867 Given 03/05/2008 DO Not Use Split Influenza Virus Vaccine [id number] Vital Signs Date Vital Result Comment 01/05/2018 BP Systolic 132 mmHg BP Diastolic [...] - /Lpf Granular - /Lpf WBC (Fma,Centrex) 1-2 RBC - Mucus - /Lpf Epith [...] Color Yellow Urine Appearance Clear Urine Specific [place] 1.014 1.010-1.030 Urine pH 6.0 5-9 Urine [...] (CALCULATED) 5 Egfr >60 5, 6 Egfr, -[place] >60 5, 7 Laboratory test finding 03/03/2014 [...] (SEE NOTE) 11 Ua - Non Micro (a) 10/12/2012 Appearance CLEAR Color YELLOW Glucose NEG [...] - /Lpf Granular - /Lpf WBC (a,Centrex) 3-5 RBC 0-2 Mucus - /Lpf Epith [...] (CALCULATED) 15 Egfr >60 15, 16 Egfr, -Kosovan >60 15, 17 Comprehensive Metabolic 10/12/2010 Glucose [...] Color YELLOW Yellow Appearance-Urine CLEAR Clear Specific [place]-Ur 1.006 Low 1.010-1.030 Esterase-Urine TRACE Negative Nitrite NEGATIVE Negative [id number] NEGATIVE Negative Protein-Urine NEGATIVE Negative PH-Urine 7.0 [...] Protein NEG Urobil 0.2 Nitrite NEG Leukocytes ([facility]Centrex) NEG Laboratory test 02/20/2008 Thin Prep SEE [...] 1 SEE RESULT BELOW Name: KRYSTAL RAMOS : [address]: Thai De La Fuente MD Acct: [id number] Unit: [id number] AGE: 52 Location: [facility] Re10/23/17 SEX: F Status: REG REF SPEC: [id number] SHERON: 10/23/17-[address]: Thai De La Fuente MD REQ: [id number] RECD: 10/24/17 STATUS: COMP _ SOURCE: URINE SPDESC: ORDERED: Urine Culture COMMENTS: [id number] CRUZ TOP Urine Source: Random Procedure Result Reported Site Urine Culture Final 10/26/17- 911 ML No Growth (<1,000 CFU/mL) * ML - Main Lab . END OF REPORT DEPARTMENT OF PATHOLOGY, [address] [place] [address] Uzair Harvey M.D. Director [facility] # [id number] 2 SEE RESULT BELOW Name: KRYSTAL RAMOS : [address]: Alexandra Payne MD Acct: [id number] Unit: [id number] AGE: 51 Location: ED Re08/01/16 SEX: F Status: DEP ER SPEC: [id number] SHERON: 08/01/[address]: Elsie MELVIN REQ: [id number] RECD: 08/01/16 STATUS: ANTONIO MALIK DR: Chrissy Payne MD _ SOURCE: URINE SPDESC: ORDERED: Urine Culture Procedure Result Reported Site Urine Culture Final 08/02/16- 1633 ML No Growth (<1,000 CFU/mL) * ML - MAIN LAB (PSC1) . END OF REPORT * ML=Testing performed at Main Lab DEPARTMENT OF PATHOLOGY, [address] [place] [address] Uzair Harvey M.D. Director [facility] # [id number] 3 Because ethnic data is not always [...] 4 SEE RESULT BELOW Name: KRYSTAL RAMOS Tulio : [address]: Vaishali Greenberg Acct: [id number] Unit: [id number] AGE: 51 Location: [facility] Re07/26/16 SEX: F Status: REG REF SPEC: [id number] SHERON: 07/26/[address] [facility] [address]: Vaishali HDEZ C REQ: [id number] RECD: 07/26/16-1208 STATUS: PAYTON MALIK DR: Chrissy Davis MD _ ORDERED: IMAGE ANALYSIS, HPV/Thin Prep COMMENTS: [id number] FINAL DIAGNOSIS Negative for Intraepithelial lesion or [...] System. Due to cytologic findings at the assembler tester microscope, comprehensive manual rescreening by a Demand Equipment Repairer may be required. The Pap Smear is [...] performed at Main Lab DEPARTMENT OF PATHOLOGY, [facility] [address] [place], [place] [address] Uzair Harvey M.D. Director [facility] # [id number] 5 FASTING; 1 sst; 1 purple top [...] Average 8.0 6.1 11 RUN DATE: 04/14/13 [facility] LAB LIVE PAGE 1 RUN TIME: [address] [facility] [address] [place], [place] [address] Specimen Inquiry Name: KRYSTAL RAMOS : [address]: Peewee Moses MD Acct: [id number] Unit: [id number] AGE: 48 Location: [facility] Re04/10/13 SEX: F Status: DEP ER SPEC: [id number] SHERON: 04/10/13-[address] [facility] [address]: Peewee Moses MD REQ: [id number] RECD: 04/11/13 STATUS: COMP KING DR: Charlie José MD _ SOURCE: THROAT SPDESC: ORDERED: Throat Beta Str Procedure Result Verified Site Throat Beta Strep Culture Final 04/14/13- 0752 ML Organism 1 STREP GRP A BY BACITRACIN DISC END OF REPORT * ML=Testing performed at Main Lab DEPARTMENT OF PATHOLOGY, [address] [place] [address] Uzair Harvey M.D. Director [facility] Permit #[id number] [employer] DEPARTMENT OF PATHOLOGY or Extension 9315 [employer] CHIEF MARKETING OFFICER CYTOLOGY REPORT PATIENT: KRYSTAL RAMOS : 1965 AGE: 47 Y SEX: F ACCT: [id number] PROCEDURE DATE: 10/12/2012 DATE RECEIVED: 10/15/2012 REQUESTING PROVIDER: LEANN RAMOSF LOCATION: [facility] Case No. [id number] PATIENT DATA: [id number] SPECIMEN SUBMITTED: * * (HPVII) THIN PREP [...] task force for cervical cancer screening, and [email or web address]. COMMENTS Thin Prep Pap tests are examined with an FDA approved location-guidance system. ADDITIONAL COPIES SENT TO: Screened/Rescreened Electronically Signed Sign Out Date/Time: by: by: BENITO MOELLER(ASC) 10/15/2012 16:40 Note: The Pap smear is a screening test designed to aid in the detection of premalignant and malignant conditions of the uterine cervix. It is not a diagnostic procedure and should not be used as the sole means of detecting cervical cancer. Both false-positive and false-negative reports do occur. 00 UA Pap Smear performed at [place] Dir: Juan Diego Gtz MD, [address] [place] [address] 01 denture waxer [facility] [place] Dir: Shahid Love MD, [address] [facility] [address] 02 BN Lab [facility] [place] Dir: Chris Argueta MD, [address] [facility] [address] For inquiries regarding HPV test results, the physician may contact Lab [facility]: [phone] . 13 2SST 14 Please note that [...] 0.06 ng/mL NOT SUPPORTIVE OF DIAGNOSIS OF ID 0.06 - 0.50 ng/ml INDETERMINATE: SUGGEST SERIAL STUDIES IF CLINICALLY INDICATED. Greater than 0.5 ng/mL CONSISTENT WITH DIAGNOSIS OF ID . 21 Anion gap measurement may be of limited value in the presence of any alkalosis, especially in a combined acid base disorder. . 22 Note change in reference range as of 01/03/08. The change was based on recommendations from the [place] [employer]. 23 A metabolite of Naproxen, O-desmethylnaproxen, has been shown to interfere with the Jendrassik-Force method for measuring total bilirubin. Samples from [...] 0.06 ng/mL NOT SUPPORTIVE OF DIAGNOSIS OF ID 0.06 - 0.50 ng/ml INDETERMINATE: SUGGEST SERIAL STUDIES IF CLINICALLY INDICATED. Greater than 0.5 ng/mL CONSISTENT WITH DIAGNOSIS OF ID . 26 2SST,1LAV 27 Greater than or [...] 7.0 3 X Average 24.0 11.0 36 [facility] [employer], [place] [employer]. DEPARTMENT OF PATHOLOGY or Extension 5447 SVP CHIEF MARKETING OFFICER CYTOLOGY REPORT PATIENT: KRYSTAL RAMOS : 1965 AGE: 42 Y SEX: F ACCT: [id number] PROCEDURE DATE: 02/20/2008 DATE RECEIVED: 02/21/2008 REQUESTING PHYSICIAN: LEANN RAMOSF LOCATION: [facility] Case No. [id number] PATIENT DATA: [id number] SPECIMEN SUBMITTED: * * (HPVII) THIN PREP [...] are examined with an FDA-approved location-guidance system (41722). Performed @ [employer] [address] [place] [address] 37 Anion gap measurement may be of limited value in the presence of any alkalosis, especially in a combined acid base disorder. . 38 Note change in reference range as of 01/03/08. The change was based on recommendations from the [place] [employer]. 39 Please note change in reference range effective 07 . 40 New Reference Range and Interpretation effective 02/15/02 TnI (ng/ml) INTERPRETATION <0.06 ng/ml NOT SUPPORTIVE OF DIAGNOSIS OF ID 0.06 - 0.50 ng/ml INDETERMINATE: SUGGEST SERIAL STUDIES IF CLINICALLY INDICATED. > 0.5 ng/ml CONSISTENT WITH DIAGNOSIS OF ID . 41 1 LAV 42 1 LAV [...] FASTING; 1 SST 48 Cholesterol Risk Levels ([facility]) Recommended: under 200 mg/dl Borderline : 200-239 [...] . Procedures Date CPT Code Description Status 06/28/2017 63890 Remove Impact Cerumen Irrigati Completed 10/16/2012 Mammogram Completed 07/28/2011 50479 Remove Impacted Cerumen Completed 05/07/2010 52309 Pulse Oximetry Completed 05/14/2009 84005 Remove Impacted Cerumen Completed 03/24/2008 32679 Remove Impacted Cerumen Completed 02/29/2008 Mammogram Completed 02/20/2008 69189 Electrocardiogram Complete Completed Encounters Type Date Location Provider CPT E/M Dx Office Visit 10/23/2017 9:50a [facility] Thai De La [place], [address] H69.91 N39.0 Office Visit 08/15/2017 2:00p [facility] [place], [address] J30.89 Office Visit 06/28/2017 9:00a [facility] Elsie Medellin, [facility] [address] J01.90 H68.003 H61.23 R09.81 Office Visit 04/18/2016 3:30p Main Office Tanatulio Almeida, [facility] [address] H81.391 Office Visit 01/01/2016 3:00p Main Office Tana Juan Pablo, [facility] [address] I10 Office Visit 12/29/2014 10:40a [facility] Chrissy Davis M.D. 55979 386.10 380.4 Office Visit 02/26/2014 8:40a [facility] Chrissy Davis M.D. 64635 V70.0 401.9 333.1 296.32 626.2 v04.81 Office Visit 10/12/2012 9:00a Main Office Tana Almeida [facility] [address] V72.31 Office Visit 07/16/2012 4:10p [facility] Charlie José M.D. 47831 724.2 Office Visit 04/23/2012 9:40a [facility] Charlie José M.D. 53859 401.9 Office Visit 04/02/2012 9:40a [facility] Charlie José M.D. 20357 401.9 388.9 v04.81 Office Visit 08/23/2011 2:40p [facility] Charlie José M.D. 79537 386.10 401.9 Office Visit 08/16/2011 2:40p [facility] Charlie José M.D. 49793 386.10 Office Visit 08/05/2011 1:40p [facility] Marbella Adams M.D. 88139 386.10 Office Visit 07/28/2011 6:40p Main Office Charlie José M.D. 34162 386.10 380.4 Office Visit 10/12/2010 12:00p Main Office Kale Martino M.D. 19770 785.6 Office Visit 05/07/2010 10:15a Main Office Tana Almeida [facility] 10655 466.0 Office Visit 01/01/2010 1:45p Main Office Tana Almeida, DRAGGER 50236 780.79 Office Visit 06/11/2008 4:00p [facility] Charlie José M.D. 49239 401.9 Office Visit 05/21/2008 5:40p Main Office Charlie José M.D. 16614 466.0 Office Visit 03/24/2008 9:45a Main Office Alexandra KeyLibra flynn 13457 380.4 388.70 Office Visit 03/05/2008 10:00a [facility] Charlie José M.D. 82108 374.44 786.59 V70.0 V77.91 V04.81 V06.5 Office Visit 02/20/2008 10:00a Main Office Tana Almeida, DRAGGER 39051 V72.31 786.59 Office Visit 01/30/2008 4:30p [facility] Charlie José M.D. 71809 786.59 401.9 300.00 Office Visit 07/13/2007 4:00p Main Office Charlie José M.D. 74229 288.50 311 401.9 Office Visit 06/25/2007 9:40a Main Office Charlie José M.D. 07471 465.9 288.50 401.9 311 Office Visit 06/18/2007 8:40a Main Office Charlie José M.D. 38519 288.50 716.99 401.9 Office Visit 06/11/2007 11:10a Main Office Charlie José M.D. 13240 716.99 Office Visit 05/22/2007 3:20p [facility] Thai Metcalf M.D. 32772 923.3 Office Visit 03/22/2007 11:20a [facility] Charlie José M.D. 27304 461.9 Office Visit 08/17/2006 9:30a Main Office Elsie Huntley, 88499 791.7 Danielle V70.0 V72.31 Office Visit 06/06/2006 3:00p [facility] Alexandra KeyLibra flynn 67516 465.9 462 Office Visit 07/30/2002 9:15a [facility] Office Alexandra Fink, Basia-C 34129 461.9 Office Visit 06/07/2002 2:30p Main Office Kirstin Nassar, Basia-C 44046 462 Plan of Care 01/05/2018 - Angeli Moses, NPG25.0 Essential tremorComments:While your symptoms are probably the same essential tremor you've had since you were young , I do think a recheck with neurology is a good idea. We can try to treat you with propranolol instead of norvasc because it may help your blood pressure and your tremor. Come back in two weeks for a recheck. If you are unable to tolerate the propranolol for any reason, you can go back to the norvasc.I10 Essential (primary) hypertensionNew Medication:Propranolol HCL 20 mgZ12.31 Encntr screen mammogram for malignant neoplasm of breastNew Xrays:Mammography Screening, Bilateral; 2-View Each Breast
[2018-01-23] MEDS ORDERED: Acetaminophen TAB* 325 MG PO PRN (03:37)
[2018-01-23] MEDS ORDERED: Al Hydrox/Mg Hydrox/Simet LIQ* 30 ML UDC PO PRN (03:37)
[2018-01-23] MEDS: Vitamin THERAPEUTIC TAB PO SCH (10:43)
--- NOTE | 2018-01-23 11:44 | PN ---
MHU: Group Therapy Note - Service Type Service Type: 80040 Group Psychotherapy - Cognitive Behavioral Group Therapy ( CBT):Patient was attentive and participatory in CBT programming this morning, and remained in good behavioral control. Patient expressed positive insights regarding relevant treatment interventions and goals.
[2018-01-23] MEDS ORDERED: Folic Acid TAB* 1 MG PO SCH (13:00)
[2018-01-23] MEDS: Venlafaxine EXT RELEASE CAP* 75 MG PO SCH (13:08)
[2018-01-23] MEDS: amLODIPine TAB* 5 MG PO SCH (13:08)
--- NOTE | 2018-01-23 15:46 | HP ---
H&P (Free Text) History and Physical: JUSTIFICATION FOR ADMISSION: Patient presented to emergency room with frequent suicidal ideation and plan, worsening depression and instability. She requires inpatient psychiatric admission in order to provide treatment and stabilization as she is a danger to herself. 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 Patient was admitted to inpatient unit for worsening of her depression, low energy, intense crying, hypersomnia and frequency of intermittent impulsive suicidal ideation with plan to floor her car over last month. Patient was also having thoughts of cutting her wrist when using knife in a kitchen. Patient unable to identify triggers or precipitating factors but reports several environmental stressors such as needing house repairs, paying for children's college, and serving her mother's legal guardian. Patient has been compliant with her medications and therapy. Patient has been going through some medication changes (reducing Rexulti and recent addition of propranolol) for her depression and is reporting worsening of her symptoms with bilateral tremors and increased anxiety. Patient reportedly has been struggling with her functioning at work given her struggle with depression and anxiety Patient reports no manic symptoms. Patient reports no psychotic symptoms. Patient denied any homicidal ideation on the unit. Patient continued to be depressed but exhibited behavior that was in control and following staffs redirection. Patient feels safe on the unit and was accepting of therapy and medications adjustment. . PAST PSYCHIATRIC HISTORY: Patient has history of atleast one inpatient psychiatric hospitalization when she was 19 for depression and suicidality. Patient has history of self injurious behavior of cutting her wrist during that time but did into require any medical attention but was in the hospital for about a month. Patient has history of outpatient psychiatric treatment for about 15 years at [facility] and sees Dr. Kyle and her therapist. Patients medications are currently being adjusted to help with depression. Patient started her treatment with Prozac which was stopper when she stopped responding to then it was switched to Celexa and then Lexapro. Patietn was currently at high than usual dose of Lexapro 30 mg a day. Patient was also on synthroid to augment her depression. Patient also started Rexulti to augment antidepressant as well but likely has been experiencing tremors due to that. Patient has no history of homicidal threats, intent or attempt. Patient has no history of aggressive and agitated behavior when decompensates. No access to firearm reported. SUBSTANCE ABUSE HISTORY: Patient uses alcohol occasionally and last use was couple of days ago. No substance abuse reported and urine toxicology was negative. PAST MEDICAL HISTORY: HTN ALLERGIES: Amoxcillin FAMILY PSYCHIATRIC HISTORY: Patient has family history of depression and schizophrenia in her mother. Patient has no history of substance abuse in family and reported no suicide in the family. FAMILY/PSYCHOSOCIAL HISTORY: Patient currently lives with her and two daughters. Patient has an elder son who is currently a senior at [employer]. Patient reports seeing him once in two months and reports having limited communication with him (once every couple of months he comes home). 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 Patient reports being stressed at work and needs a lot of motivation to keep on tract and give out lectures on a daily basis. Patient reports that her anxiety and depression has made it difficult to function at work. Patient support system includes her family and clinicians. REVIEW OF SYSTEMS: Patients review of symptoms was negative for any physical complaint other than minute ruptured blister on her leg and resting tremors. Patient vitas were reviewed and had increase in blood pressure will be restarted on her B.P medicine. Patients ED physical exam was reviewed which is grossly normal with no active medical problem. Physical Exam Summary: Constitutional: Well-developed, Well-nourished, Alert. (-) Distressed Skin: Warm, Dry HENT: Normocephalic; Atraumatic Eyes: Conjunctiva normal Neck: Musculoskeletal ROM normal neck. (-) JVD, (-) Stridor, (-) Tracheal deviation Cardio: Rhythm regular, rate normal, Heart sounds normal; Intact distal pulses; The pedal pulses are 2+ and symmetric. Radial pulses are 2+ and symmetric. (-) Murmur Pulmonary/Chest wall: Effort normal. (-) Respiratory distress, (-) Wheezes, (-) Rales Abd: Soft, (-) epigastric tenderness, (-) Distension, (-) Guarding, (-) Rebound Musculoskeletal: (-) Edema Lymph: (-) Cervical adenopathy Neuro: Alert, Oriented x3. Pt has a resting tremor. MENTAL STATUS EXAMINATION: Appearance: casually dressed, appear stated age, intense crying spells,fair hygiene and appropriate grooming. Behavior: in fair control and cooperative Gait: normal Abnormal motor activity: bilateral tremor in hands Speech: increased rate, normal tone, volume and rhtyhm. Mood: "I have been depressed" Affect: depressed, restricted, crying spells. Thought process: circumstantial Thought Content: Suicidal/Homicidal ideation: denied at time of evaluation Delusions: none Obsessions: none Phobia: none Perceptual disturbance: none Attention: limited Orientation: grossly intact Concentration: limited Memory: fair Insight: fair Judgment: fair Impulse control: fair IMPRESSION: Patient with history of chronic Depression and anxiety. Patient currently admitted due to worsening of her depression and anxiety with suicidal thoughts and plan. Patient has also struggled with multiple environmental stressors and functioning at work. Patient is a danger to self and others if discharged hence will be stabilized on inpatient unit with medication adjustments and therapy. DIAGNOSES: Major Depressive Disorder, recurrent without psychotic features, Anxiety Disorder Unspecified PLAN: Admit to [facility] on Q 15 min observation. Patient is full code. Patient is on voluntary admission status Integrate patient into the milieu individual and group psychotherapy MMPI and psychological consult with Dr. Acosta. Social work consult for therapy and discharge planning Will hold family meeting to increase Data base, if possible. Patient gave informed consent to start the following medications: Effexor XR was started at 75 mg PO QAM to help with derpession and anxiety. Patient other medications were not started including Rexulti, Synthroid and Lexapro. Patient was also started on Multivitamin and Folic acid daily. Patient will also be started on Hydroxyzine 25 mg PO Q6HRS PRN for anxiety and depression. Will continue to monitor and f/u for improvement and side effects. Jennifer Ceron MD Attending Psychiatrist
[2018-01-23] MEDS: hydrOXYzine HCL TAB* 25 MG PO PRN (16:27)
[2018-01-23] MEDS: Bacitracin OINTMENT* 0.5% 0.5 oz TUBE TOPICAL SCH (22:13)
[2018-01-24] MEDS: Folic Acid TAB* 1 MG PO SCH ×2 (08:53→10:46)
[2018-01-24] MEDS: amLODIPine TAB* 5 MG PO SCH (08:53)
[2018-01-24] MEDS: Venlafaxine EXT RELEASE CAP* 75 MG PO SCH (08:54)
[2018-01-24] MEDS: Vitamin THERAPEUTIC TAB PO SCH (08:54)
[2018-01-24] MEDS: Bacitracin OINTMENT* 0.5% 0.5 oz TUBE TOPICAL SCH ×2 (09:16→21:36)
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
--- NOTE | 2018-01-24 17:37 | PN ---
MHU: Group Therapy Note - Service Type Service Type: [id number] Group Psychotherapy - Group Participation Patient Participating in Group: Yes Level of Group Participation: Attentive Relatedness to Group: Defended - Additional Group Comments Group Comments: Medication Education Group: Patient was attentive and participatory in group, and remained in good behavioral control. Patient expressed positive insights regarding relevant treatment interventions. Patient stated understanding of material discussed and had appropriate questions.
[2018-01-24] MEDS: hydrOXYzine HCL TAB* 25 MG PO PRN (23:38)
[2018-01-25] MEDS: Folic Acid TAB* 1 MG PO SCH (10:29)
[2018-01-25] MEDS: Venlafaxine EXT RELEASE CAP* 75 MG PO SCH (10:30)
[2018-01-25] MEDS: amLODIPine TAB* 5 MG PO SCH (10:30)
[2018-01-25] MEDS: Vitamin THERAPEUTIC TAB PO SCH (10:30)
[2018-01-25] MEDS: Bacitracin OINTMENT* 0.5% 0.5 oz TUBE TOPICAL SCH ×2 (10:30→22:12)
--- NOTE | 2018-01-25 12:12 | PN ---
Subjective - Subjective Date of Service: 01/25/18 Service Type: 08469 Hosp care 25 min moderate complexity Subjective: Patient was seen by self, discussed with treatment team, chart was reviewed. Patient has been showing ongoing gradual improvement in her depression and anxiety. Patient has an interrupted sleep last night but reportedly too her Hydroxyzine that somewhat helped. Patient has somewhat of catastrophic thinking that she is working on with her coping strategies and positive thinking. Patient has been compliant with her medications, no reported side effects. Patient eating has been fair. Patient has been cooperative with staff and utilized staff pass appropriately. Patient behavior has been in control. Patient mood was less anxious and dysphoric. Patient has been reporting no suicidal or homicidal ideation on the unit but afraid if she returns home. No psychotic symptoms of delusions or hallucinations. Patient is actively working on goals toward stress reduction out in the community. Patient was educated about her perimenopausal symptoms and management discussion with an OBGYN that can addressed outpatient. Objective - Appearance Appearance: Healthy Appearing Dysmorphic Features: No Hygiene: Normal Grooming: Fairly Well Kept - Behavior Psychomotor Activities: Normal Exhibits Abnormal Movement: No - Attitude and Relatedness Attitude and Relatedness: Cooperative Eye Contact: Fair - less tremuolous - Speech Quality: Unpressured Latencies: Normal Quantity: Appropriate - Mood Patient's Decription of Mood: "Anxious" - Affect Observed Affect: Tense Affect Consistent with: Dysphoria - Thought Process Patient's Thought Process: Coherent Thought Content: No Passive Wish, No Suicidal Planning, No Homicidal Ideation, No Paranoid Ideation - Sensorium Experiencing Hallucinations: No, Sensorium is Clear Type of Hallucinations: Visual: No, Auditory: No, Command: No - Level of Consciousness Level of Consciousness: Alert Orientation: Yes Intact, Yes Orientated to Time, Yes Orientated to Place, Yes Orientated to Person - Impulse Control Impulse Control: Intact - Insight and Judgement Insight and Judgement: Fair - Group Participation Particating in Group Activities: Yes - Medication Management Medication Management Adherence: Yes Assessment - Assessment Merits Inpatient Hospitalization: For Immediate Safety, For Stabilization, For Discharge Planning Inpatient DSM-V Dx: F33.9 Clinical Impression: Patient is 52 y/o with history of chronic Depression and anxiety. Patient currently admitted due to worsening of her depression and anxiety with suicidal thoughts and plan. Patient has also struggled with multiple environmental stressors and functioning at work. Patient is a danger to self and others if discharged hence will be stabilized on inpatient unit with medication adjustments and therapy. Plan - Plan Treatment Plan: Name: PORTER ROLON Birthdate: 1965 [id number] - Patient continues to be hospitalized due to recent suicidal thoughts with plan , depression and anxiety. - Patient's medications were continued with Effexor XR 75 mg PO QAM and Folic acid to help with depression and anxiety. Patient was also kept on Hydroxyzine PRN for anxiety. WIll follow with improvement and any side effects to assess further need to increase Effexor at 150 mg QAM tomorrow. - Patient will be monitored for improvement and side effects. Risk and benefits were discussed. - Patient was encouraged to continue his participation in the milieu, group and individual therapy. Medications: Current Medications Acetaminophen (Tylenol Tab*) 650 mg PO Q4H PRN PRN Reason: PAIN or TEMP > 101 F Al Hydrox/Mg Hydrox/Simethicone (Maalox Plus*) 30 ml PO Q4H PRN PRN Reason: INDIGESTION Amlodipine Besylate (Norvasc Tab*) 5 mg PO DAILY [facility] Last Admin: 01/25/18 10:30 Dose: 5 mg Bacitracin (Bacitracin Ointment*) 1 applic TOPICAL BID [facility] Last Admin: 01/25/18 10:30 Dose: Not Given Folic Acid (Folvite Tab*) 2 mg PO DAILY [facility] Last Admin: 01/25/18 10:29 Dose: 2 mg Hydroxyzine HCl (Atarax Tab*) 25 mg PO Q6H PRN PRN Reason: ANXIETY Last Admin: 01/24/18 23:38 Dose: 25 mg Multivitamins (Theragran Tab*) 1 tab PO DAILY [facility] Last Admin: 01/25/18 10:30 Dose: 1 tab Venlafaxine HCl (Effexor Xr Cap*) 75 mg PO DAILY [facility] Last Admin: 01/25/18 10:30 Dose: 75 mg
--- NOTE | 2018-01-25 13:56 | PN ---
MHU: Group Therapy Note - Service Type Service Type: [id number] Group Psychotherapy - Cognitive Behavioral Group Therapy ( CBT):Patient was attentive and participatory in CBT programming this morning, and remained in good behavioral control. Patient expressed positive insights regarding relevant treatment interventions and goals.
[2018-01-25] MEDS: hydrOXYzine HCL TAB* 25 MG PO PRN (22:15)
[2018-01-26] MEDS: Vitamin THERAPEUTIC TAB PO SCH (09:03)
[2018-01-26] MEDS: Folic Acid TAB* 1 MG PO SCH (09:03)
[2018-01-26] MEDS: Venlafaxine EXT RELEASE CAP* 75 MG PO SCH (09:04)
[2018-01-26] MEDS: Bacitracin OINTMENT* 0.5% 0.5 oz TUBE TOPICAL SCH ×2 (09:04→20:45)
[2018-01-26] MEDS: amLODIPine TAB* 5 MG PO SCH (09:04)
[2018-01-26] MEDS: hydrOXYzine HCL TAB* 25 MG PO PRN ×2 (10:28→22:07)
[2018-01-26] MEDS ORDERED: Mirtazapine TAB* 15 MG PO PRN (11:53)
--- NOTE | 2018-01-26 12:34 | PN ---
Subjective - Subjective Date of Service: 01/26/18 Service Type: 38530 Hosp care 15 min low complexity Subjective: Patient was seen by self, discussed with treatment team, chart was reviewed. Patient has been showing ongoing gradual improvement in her depression and anxiety. Patient reported feeling agitated today, feeling trapped in her situation and has been working with social worker psychiatric to get a medical leave. Patient meets with her every day and is keeping him updated with treatment planning. Patient is attending therapy and learning coping strategies to help with that. Patient continues to have interruption in her sleep last night as well with some help from Hydroxyzine. Patient is working on her catastrophic thinking and was provided brief CBT. Patient has been compliant with her medications, no reported side effects. Patient eating has been fair. Patient has been cooperative with staff and utilized staff pass appropriately. Patient behavior has been in control. Patient mood was less anxious and dysphoric. Patient has been reporting no suicidal or homicidal ideation on the unit but afraid if she returns home. No psychotic symptoms of delusions or hallucinations. Patient is actively working on goals toward stress reduction out in the community. Objective - Appearance Appearance: Healthy Appearing Dysmorphic Features: No Hygiene: Mal-odorous - Behavior Psychomotor Activities: Normal Exhibits Abnormal Movement: No - Attitude and Relatedness Attitude and Relatedness: Cooperative Eye Contact: Fair - Speech Quality: Unpressured Latencies: Normal Quantity: Appropriate - Mood Patient's Decription of Mood: "agitated" - Affect Observed Affect: Tense Affect Consistent with: Dysphoria - Thought Process Patient's Thought Process: Coherent Thought Content: No Passive Wish, No Suicidal Planning, No Homicidal Ideation, No Paranoid Ideation - Sensorium Experiencing Hallucinations: No, Sensorium is Clear Type of Hallucinations: Visual: No, Auditory: No, Command: No - Level of Consciousness Level of Consciousness: Alert Orientation: Yes Intact, Yes Orientated to Time, Yes Orientated to Place, Yes Orientated to Person - Impulse Control Impulse Control: Intact - Insight and Judgement Insight and Judgement: Fair - Group Participation Particating in Group Activities: Yes - Medication Management Medication Management Adherence: Yes Assessment - Assessment Merits Inpatient Hospitalization: For Immediate Safety, For Stabilization, For Discharge Planning Inpatient DSM-V Dx: F33.9 Clinical Impression: Patient is 52 y/o with history of chronic Depression and anxiety. Patient currently admitted due to worsening of her depression and anxiety with suicidal thoughts and plan. Patient has also struggled with multiple environmental stressors and functioning at work. Patient is a danger to self and others if discharged hence will be stabilized on inpatient unit with medication adjustments and therapy. Plan - Plan Treatment Plan: Name: PORTER ROLON Birthdate: 1965 [id number] - Patient continues to be hospitalized due to recent suicidal thoughts with plan , depression and anxiety. - Patient's medications were continued with Effexor XR 75 mg PO QAM and Folic acid to help with depression and anxiety. Patient was also kept on Hydroxyzine PRN for anxiety. Given patient difficulty with sleep after informed consent Remeron was started at 7.5 mg HS PRN. - Patient will be monitored for improvement and side effects. Risk and benefits were discussed. - Patient was encouraged to continue his participation in the milieu, group and individual therapy. Medications: Current Medications Acetaminophen (Tylenol Tab*) 650 mg PO Q4H PRN PRN Reason: PAIN or TEMP > 101 F Al Hydrox/Mg Hydrox/Simethicone (Maalox Plus*) 30 ml PO Q4H PRN PRN Reason: INDIGESTION Amlodipine Besylate (Norvasc Tab*) 5 mg PO DAILY [facility] Last Admin: 01/26/18 09:04 Dose: 5 mg Bacitracin (Bacitracin Ointment*) 1 applic TOPICAL BID [facility] Last Admin: 01/26/18 09:04 Dose: Not Given Folic Acid (Folvite Tab*) 2 mg PO DAILY [facility] Last Admin: 01/26/18 09:03 Dose: 2 mg Hydroxyzine HCl (Atarax Tab*) 25 mg PO Q6H PRN PRN Reason: ANXIETY Last Admin: 01/26/18 10:28 Dose: 25 mg Mirtazapine (Remeron Tab*) 7.5 mg PO BEDTIME PRN PRN Reason: SLEEP Multivitamins (Theragran Tab*) 1 tab PO DAILY [facility] Last Admin: 01/26/18 09:03 Dose: 1 tab Venlafaxine HCl (Effexor Xr Cap*) 75 mg PO DAILY [facility] Last Admin: 01/26/18 09:04 Dose: 75 mg
[2018-01-26] MEDS: Artificial Tears* 15 ML BTL RIGHT EYE PRN (20:43)
[2018-01-27] MEDS: Folic Acid TAB* 1 MG PO SCH (08:41)
[2018-01-27] MEDS: Vitamin THERAPEUTIC TAB PO SCH (08:41)
[2018-01-27] MEDS: amLODIPine TAB* 5 MG PO SCH (08:41)
[2018-01-27] MEDS: Venlafaxine EXT RELEASE CAP* 75 MG PO SCH (08:41)
[2018-01-27] MEDS: Bacitracin OINTMENT* 0.5% 0.5 oz TUBE TOPICAL SCH ×2 (08:43→22:19)
[2018-01-27] MEDS: Artificial Tears* 15 ML BTL RIGHT EYE PRN (10:48)
--- NOTE | 2018-01-27 11:50 | PN ---
Progress Note - Progress Note Date of Service: 01/27/18 Note: Hospital Medicine asked to examine patient's right eye as she was complaining about redness and irritation with possible vision change. Patient reports that she first noticed redness to the medial aspect of her right eye yesterday. Today it seems to be more red. She initially reported some vision changes and severe pain to nursing staff. To me, she reports that she thought that her vision seemed a little blurry when she first woke up but now her vision is normal. She denies every having severe pain to me but reports that it is a bit itchy and [place] very mildly when she closes her eye. She denies any drainage from the eye. She believes she may have had similar symptoms in the past. On exam, she has a well-demarcated, scleral erythema to the medial aspect of her right eye. There is no drainage. No vision change. Symptoms and exam consistent with subconjunctival hemorrhage. Patient has history of hypertension that is well controlled; she should continue amlodipine. May have been caused by valsalva maneuver, such as coughing or straining. The blood should re-absorb in 1-2 weeks, no treatment indicated. Nursing staff updated. Encouraged to call us if patient complains of vision changes/pain or if she has drainage from the eye.
[2018-01-27] MEDS: hydrOXYzine HCL TAB* 25 MG PO PRN (18:09)
[2018-01-28 08:22] VITALS: BP 127/73
[2018-01-28] MEDS: Folic Acid TAB* 1 MG PO SCH (09:12)
[2018-01-28] MEDS: Venlafaxine EXT RELEASE CAP* 75 MG PO SCH (09:13)
[2018-01-28] MEDS: Bacitracin OINTMENT* 0.5% 0.5 oz TUBE TOPICAL SCH ×2 (09:13→21:57)
[2018-01-28] MEDS: amLODIPine TAB* 5 MG PO SCH (09:13)
[2018-01-28] MEDS: Vitamin THERAPEUTIC TAB PO SCH (09:13)
[2018-01-28] MEDS: Artificial Tears* 15 ML BTL RIGHT EYE PRN (09:14)
--- NOTE | 2018-01-28 15:54 | PN ---
Subjective - Subjective Date of Service: 01/28/18 Subjective: Krystal took first dose of Remeron on Monday night, "did not like it," declined it last night, took Atarax instead and she slept well. She endorses feeling "a little less anxiety," less depressed and she denies SI. Per staff, she is adherent to unit's routines. Objective - Appearance Appearance: Healthy Appearing Hygiene: Normal Grooming: Well Kept - Behavior Psychomotor Activities: Normal Exhibits Abnormal Movement: No - Attitude and Relatedness Attitude and Relatedness: Cooperative Eye Contact: Fair - Speech Quality: Unpressured Latencies: Normal Quantity: Appropriate - Mood Patient's Decription of Mood: "Anxious" - Affect Observed Affect: Fair Affect Consistent with: Euthymia - Thought Process Patient's Thought Process: Coherent, Goal Directed Thought Content: No Passive Wish, No Suicidal Planning, No Homicidal Ideation, No Paranoid Ideation - Sensorium Experiencing Hallucinations: No, Sensorium is Clear - Level of Consciousness Level of Consciousness: Alert Orientation: Yes Intact - Impulse Control Impulse Control: Intact - Insight and Judgement Insight and Judgement: Fair - Group Participation Particating in Group Activities: Yes - Medication Management Medication Management Adherence: Yes Assessment - Assessment Inpatient DSM-V Dx: F33.9 Clinical Impression: Patient is 52 y/o with history of chronic Depression and anxiety. Patient currently admitted due to worsening of her depression and anxiety with suicidal thoughts and plan. Patient has also struggled with multiple environmental stressors and functioning at work. Patient is a danger to self and others if discharged hence will be stabilized on inpatient unit with medication adjustments and therapy. Stabilizing in this structured setting, with lower distress level, improving mood and anxiety symptoms, denying suicidal ideation. Tolerating trials of Venlafaxine, folic acid and hydroxyzine. Plan - Plan Treatment Plan: Name: KRYSTAL ROLON Birthdate: 1965 [id number] Medications: Current Medications Acetaminophen (Tylenol Tab*) 650 mg PO Q4H PRN PRN Reason: PAIN or TEMP > 101 F Al Hydrox/Mg Hydrox/Simethicone (Maalox Plus*) 30 ml PO Q4H PRN PRN Reason: INDIGESTION Amlodipine Besylate (Norvasc Tab*) 5 mg PO DAILY JIMENEZ Last Admin: 01/28/18 09:13 Dose: 5 mg Bacitracin (Bacitracin Ointment*) 1 applic TOPICAL BID PENDING SALE TO [facility] Last Admin: 01/28/18 09:13 Dose: 1 applic Folic Acid (Folvite Tab*) 2 mg PO DAILY PENDING SALE TO [facility] Last Admin: 01/28/18 09:12 Dose: 2 mg Hydroxyzine HCl (Atarax Tab*) 25 mg PO Q6H PRN PRN Reason: ANXIETY Last Admin: 01/27/18 18:09 Dose: 25 mg Mirtazapine (Remeron Tab*) 7.5 mg PO BEDTIME PRN PRN Reason: SLEEP Last Admin: 01/26/18 20:40 Dose: 7.5 mg Multivitamins (Theragran Tab*) 1 tab PO DAILY PENDING SALE TO [facility] Last Admin: 01/28/18 09:13 Dose: 1 tab Polyvinyl Alcohol (Polyvinyl Alcohol 1.4% Opth*) 1 drop RIGHT EYE Q2H PRN PRN Reason: DRY EYE Last Admin: 01/28/18 09:14 Dose: 1 drop Venlafaxine HCl (Effexor Xr Cap*) 75 mg PO DAILY PENDING SALE TO [facility] Last Admin: 01/28/18 09:13 Dose: 75 mg - Discharge Plan Discharge Plan: Outpatient Follow Up Outpatient Program: [facility]
[2018-01-28] MEDS: hydrOXYzine HCL TAB* 25 MG PO PRN (17:50)
[2018-01-29] MEDS: Folic Acid TAB* 1 MG PO SCH (08:27)
[2018-01-29] MEDS: amLODIPine TAB* 5 MG PO SCH (08:27)
[2018-01-29] MEDS: Vitamin THERAPEUTIC TAB PO SCH (08:27)
[2018-01-29] MEDS: Venlafaxine EXT RELEASE CAP* 75 MG PO SCH (08:27)
[2018-01-29] MEDS: Bacitracin OINTMENT* 0.5% 0.5 oz TUBE TOPICAL SCH (08:28)
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
== END 2018-01-29 12:44 | disposition home or self-care (01) | DRG 751 ==
LOC: ED 16:50 → BSU 01-23 02:00
PROVIDERS: ADMIT Psychiatry & Neurology Psychiatry; ATTEND Psychiatry & Neurology Psychiatry
DX: F33.9 Major depressive disorder, recurrent, unspecified (principal); R45.851 Suicidal ideations; F41.9 Anxiety disorder, unspecified; I10 Essential (primary) hypertension; H11.31 Conjunctival hemorrhage, right eye; Z88.1 Allergy status to other antibiotic agents; Z81.8 Family history of other mental and behavioral disorders
CPT/HCPCS: 90686; 99285; A9270-GY